=== PATIENT | female | born 1960 | race Caucasian/White ===

== ENCOUNTER 2017-04-02 14:41 | Emergency (ER) | payer MEDICARE, SELFPAY ==
[2017-04-02] MEDS ORDERED: Sodium Chloride 0.9% 1,000 ML IV ONE (14:53)
[2017-04-02] MEDS ORDERED: Ketorolac 30 MG/ML SDV IVPUSH ONE (14:54)
--- NOTE | 2017-04-02 15:07 | EDM.PDOC ---
ED HPI GENERAL MEDICAL PROBLEM - General Chief Complaint: Genitourinary Problem Stated Complaint: KIDNEY STONE? [id number] Time Seen by Provider: 04/02/17 15:02 Source of Information: Reports: Patient History Limitations: Reports: No Limitations - History of Present Illness INITIAL COMMENTS - FREE TEXT/NARRATIVE: 57 yo white female c/o left flank pain since 1pm today. PMHx. Left Kidney stones X 1 year. No Fever and No Chills Onset: Today Onset Date: 04/02/17 Onset Time: 13:00 Duration: Hour(s): Location: Reports: Back (left flank) Quality: Reports: Ache Severity: Moderate Improves with: Reports: None Worsens with: Reports: None Associated Symptoms: Reports: No Other Symptoms - Related Data Allergies Allergy/AdvReac Type Severity Reaction Status Date / Time No Known Allergies Allergy Verified 08/13/16 12:31 Home Meds: Home Meds Divalproex Sodium [Divalproex Sodium ER] 1,500 mg PO BEDTIME 07/14/14 [History] metFORMIN HCl [Metformin HCl ER] 2,000 mg PO DAILY 07/14/14 [History] Aspirin 81 mg PO BRK 11/20/15 [History] Famotidine [Pepcid] 20 mg PO DAILY PRN 11/20/15 [History] Ibuprofen [Motrin] 800 mg PO Q6H 11/20/15 [History] atorvaSTATin [Lipitor] 10 mg PO BEDTIME 11/20/15 [History] Past Medical History HEENT History: Reports: Impaired Vision Cardiovascular History: Reports: High Cholesterol, Hypertension Gastrointestinal History: Reports: Cholelithiasis, GERD Musculoskeletal History: Reports: Other (See Below) Other Musculoskeletal History: elbow surgery Neurological History: Reports: Neuropathy, Diabetic Endocrine/Metabolic History: Reports: Diabetes, Type II, Obesity/BMI 30+ - Past Surgical History Female Surgical History: Reports: Hysterectomy Social & Family History - Family History Family Medical History: Noncontributory - Tobacco Use Smoking Status *Q: Never Smoker Second Hand Smoke Exposure: No - Caffeine Use Caffeine Use: Reports: Soda - Alcohol Use Days Per Week of Alcohol Use: 0 - Recreational Drug Use Recreational Drug Use: No - Living Situation & Occupation Living situation: Reports: with Family ED ROS GENERAL - Review of Systems Review Of Systems: See Below Constitutional: Reports: No Symptoms HEENT: Reports: No Symptoms Respiratory: Reports: No Symptoms Cardiovascular: Reports: No Symptoms Endocrine: Reports: No Symptoms : Reports: Flank Pain (left) Musculoskeletal: Reports: No Symptoms Skin: Reports: No Symptoms Neurological: Reports: No Symptoms Psychiatric: Reports: No Symptoms Hematologic/Lymphatic: Reports: No Symptoms Immunologic: Reports: No Symptoms ED EXAM, RENAL/ - Physical Exam Exam: See Below Exam Limited By: No Limitations General Appearance: Alert, No Apparent Distress, Obese Ears: Normal External Exam Nose: Normal Inspection Throat/Mouth: Normal Inspection Head: Atraumatic Neck: Normal Inspection Respiratory/Chest: Lungs Clear, No Accessory Muscle Use Cardiovascular: Normal Peripheral Pulses, Regular Rate, Rhythm GI/Abdominal: Normal Bowel Sounds Back Exam: Normal Inspection Extremities: Normal Inspection Neurological: Alert, Oriented, CN II-XII Intact Psychiatric: Normal Affect, Normal Mood Skin Exam: Warm, Dry, Intact Lymphatic: No Adenopathy Course - Vital Signs Last Recorded V/S: Last Vital Signs Temp 36.4 C 04/02/17 17:14 Pulse 61 04/02/17 17:14 Resp 20 04/02/17 17:14 BP 124/66 04/02/17 17:14 Pulse Ox 95 04/02/17 17:14 - Orders/Labs/Meds Orders: Active Orders 24 hr Category Date Time Status Sodium Chloride 0.9% [Normal Saline] 1,000 ml Med 04/02/17 18:00 Active IV ASDIRECTED Medication Orders Sodium Chloride (Normal Saline) 1,000 mls @ 999 mls/hr IV ASDIRECTED OLGA Last Admin: 04/02/17 17:54 Dose: 999 mls/hr Labs: Laboratory Tests 04/02/17 04/02/17 04/02/17 Range/Units 15:11 15:11 16:20 WBC 6.3 (5.0-10.0) 10^3/uL RBC 4.13 L (4.2-5.4) 10^6/uL Hgb 13.6 (12.0-16.0) g/dL Hct 41.8 (37.0-47.0) % MCV 101.2 H (80-100) fL MCH 32.9 (27.0-34.0) pg MCHC 32.5 L (33.0-35.0) g/dL Plt Count 162 (150-450) 10^3/uL Neut % (Auto) 47.6 (42.2-75.2) % Lymph % (Auto) 38.0 (20.5-50.1) % [place] % (Auto) 10.7 H (2-8) % Eos % (Auto) 3.2 H (1.0-3.0) % Baso % (Auto) 0.5 (0.0-1.0) % Sodium 141 (135-145) mmol/L Potassium 4.3 (3.6-5.0) mmol/L Chloride 103 (101-111) mmol/L Carbon Dioxide 25.0 (21.0-31.0) mmol/L Anion Gap 17.3 BUN 13 (7-18) mg/dL Creatinine 0.8 (0.6-1.3) mg/dL Est Cr Clr Drug Dosing TNP Estimated GFR (MDRD) > 60 BUN/Creatinine Ratio 16.25 Glucose 157 H (74-105) mg/dL Calcium 9.8 (8.4-10.2) mg/dl Total Bilirubin 0.4 (0.2-1.0) mg/dL AST 56 H (10-42) IU/L ALT 34 (10-60) IU/L Alkaline Phosphatase 77 (42-121) IU/L Total Protein 7.4 (6.7-8.2) g/dl Albumin 3.8 (3.2-5.5) g/dl Globulin 3.6 Albumin/Globulin Ratio 1.06 Urine Color [place] (YELLOW) Urine Appearance Turbid (CLEAR) Urine pH 5.5 (5.0-9.0) Ur Specific [place] 1.025 (1.005-1.030) Urine Protein >=300 H (NEGATIVE) Urine Glucose (UA) Negative (NEGATIVE) Urine Ketones 15 H (NEGATIVE) Urine Occult Blood Large H (NEGATIVE) Urine Nitrite Negative (NEGATIVE) Urine Bilirubin Small H (NEGATIVE) Urine Urobilinogen 0.2 (0.2-1.0) mg/dL Ur Leukocyte Esterase Negative (NEGATIVE) Urine RBC >100 H /HPF Urine WBC 0-5 (0-5/HPF) /HPF Ur Epithelial Cells Moderate H /HPF Calcium Oxalate Crystal Few H /HPF Amorphous Sediment Many H (0/HPF) /HPF Urine Bacteria Few (0-FEW/HPF) /HPF Fine Granular Casts Few H (0/LPF) /LPF Urine Mucus Few H /LPF Meds: Medications Generic Name Dose Route Start Last Admin Trade Name Anjali PRN Reason Stop Dose Admin Sodium Chloride 1,000 mls @ 999 mls/hr 04/02/17 18:00 04/02/17 17:54 Normal Saline IV 999 mls/hr ASDIRECTED OLGA Administration Discontinued Medications Generic Name Dose Route Start Last Admin Trade Name Anjali PRN Reason Stop Dose Admin Sodium Chloride 1,000 mls @ 999 mls/hr 04/02/17 14:53 04/02/17 15:15 Normal Saline IV 04/02/17 15:53 999 mls/hr .BOLUS ONE Administration Ketorolac Tromethamine 30 mg 04/02/17 14:54 04/02/17 15:25 Toradol IVPUSH 04/02/17 14:55 30 mg ONETIME ONE Administration Tamsulosin HCl 0.4 mg 04/02/17 17:27 04/02/17 17:50 Flomax PO 04/02/17 17:28 0.4 mg ONETIME ONE Administration Departure - Departure Time of Disposition: 18:09 Disposition: Home, Self-Care 01 Condition: Good Clinical Impression: Kidney stone - Discharge Information Forms: ED Department Discharge Additional Instructions: Rest Increase intake of WATER and CRANBERRY JUICE Take the FLOMAX .4mg Daily X 5 days F/U w/ PCP - My Orders Last 24 Hours: My Active Orders 04/02/17 18:00 Sodium Chloride 0.9% [Normal Saline] 1,000 ml IV ASDIRECTED - Assessment/Plan Last 24 Hours: My Active Orders 04/02/17 18:00 Sodium Chloride 0.9% [Normal Saline] 1,000 ml IV ASDIRECTED
[2017-04-02 15:38] LABS: CHLORIDE,CL 103 mmol/L (101-111); SODIUM,NA 141 mmol/L (135-145)
[2017-04-02] MEDS ORDERED: Tamsulosin 0.4 MG Cap.ER PO ONE (17:27)
[2017-04-02] MEDS ORDERED: Sodium Chloride 0.9% 1,000 ML IV SCH (18:00)
[2017-04-02 18:57] VITALS: BP 128/66
== END 2017-04-02 19:03 | disposition home or self-care (01) ==
LOC: DL.ED 14:41
DX: N13.2 Hydronephrosis with renal and ureteral calculous obstruction (principal); I10 Essential (primary) hypertension; E78.00 Pure hypercholesterolemia, unspecified; K21.9 Gastro-esophageal reflux disease without esophagitis; E66.9 Obesity, unspecified; E11.40 Type 2 diabetes mellitus with diabetic neuropathy, unspecified; Z90.710 Acquired absence of both cervix and uterus; Z79.84 Long term (current) use of oral hypoglycemic drugs; Z79.82 Long term (current) use of aspirin; Z79.899 Other long term (current) drug therapy; Z68.41 Body mass index [BMI] 40.0-44.9, adult
CPT/HCPCS: 36415; 74176; 80053; 81001; 85025; 96361; 96374; 99284; A9270; J1885; J7030

== ENCOUNTER 2017-06-08 22:37 | Emergency (ER) | payer MEDICARE, OTHER, SELFPAY ==
[2017-06-08 22:45] VITALS: BP 181/84
[2017-06-08] MEDS ORDERED: Albuterol/Ipratropium 3.0-0.5 MG/3 ML Neb Soln NEB ONE (22:51)
--- NOTE | 2017-06-08 22:53 | EDM.PDOC ---
ED HPI GENERAL MEDICAL PROBLEM - General Chief Complaint: Respiratory Problem Stated Complaint: 2 WEEKS COLD, SORE THROAT [id number] Time Seen by Provider: 06/08/17 22:51 Source of Information: Reports: Patient History Limitations: Reports: No Limitations - History of Present Illness INITIAL COMMENTS - FREE TEXT/NARRATIVE: sick 2 weeks saw clinic told viral but not better. now with sore throat. 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 Medication(s) Throat Pain Score (Numeric/FACES): 8 - Related Data Allergies Allergy/AdvReac Type Severity Reaction Status Date / Time No Known Allergies Allergy Verified 06/08/17 22:41 Home Meds: Home Meds Divalproex Sodium [Divalproex Sodium ER] 1,500 mg PO BEDTIME 07/14/14 [History] metFORMIN HCl [Metformin HCl ER] 2,000 mg PO DAILY 07/14/14 [History] Aspirin 81 mg PO BRK 11/20/15 [History] Famotidine [Pepcid] 20 mg PO DAILY PRN 11/20/15 [History] Ibuprofen [Motrin] 800 mg PO Q6H 11/20/15 [History] atorvaSTATin [Lipitor] 10 mg PO BEDTIME 11/20/15 [History] Past Medical History HEENT History: Reports: Impaired Vision Other HEENT History: wears glasses Cardiovascular History: Reports: High Cholesterol, Hypertension Respiratory History: Reports: None Gastrointestinal History: Reports: Cholelithiasis, GERD Genitourinary History: Reports: Renal Calculus Musculoskeletal History: Reports: Other (See Below) Other Musculoskeletal History: elbow surgery Neurological History: Reports: Neuropathy, Diabetic Other Neuro History: benign brain tumor Endocrine/Metabolic History: Reports: Diabetes, Type II, Obesity/BMI 30+ - Past Surgical History Female Surgical History: Reports: Hysterectomy Social & Family History - Family History Family Medical History: Noncontributory - Tobacco Use Smoking Status *Q: Never Smoker Second Hand Smoke Exposure: No - Caffeine Use Caffeine Use: Reports: Soda - Alcohol Use Days Per Week of Alcohol Use: 0 - Recreational Drug Use Recreational Drug Use: No - Living Situation & Occupation Living situation: Reports: with Family ED ROS GENERAL - Review of Systems Review Of Systems: ROS reveals no pertinent complaints other than HPI. ED EXAM, GENERAL - Physical Exam Exam: See Below Exam Limited By: No Limitations General Appearance: Alert, WD/WN, No Apparent Distress Ears: Hearing Grossly Normal Throat/Mouth: Normal Voice, No Airway Compromise Head: Atraumatic Neck: Non-Tender, Full Range of Motion Respiratory/Chest: No Respiratory Distress, No Accessory Muscle Use, Rhonchi, Wheezing. No: Decreased Breath Sounds, Retractions Cardiovascular: Regular Rate, Rhythm GI/Abdominal: Soft, Non-Tender Neurological: Alert, Oriented, Normal Cognition, Normal Gait, No Motor/Sensory Deficits Psychiatric: Normal Affect, Normal Mood Skin Exam: Warm, Dry, Normal Color Lymphatic: No Adenopathy Course - Vital Signs Last Recorded V/S: Last Vital Signs Temp 36.8 C 06/08/17 22:44 Pulse 94 06/08/17 22:44 Resp 22 H 06/08/17 22:44 BP 181/84 H 06/08/17 22:44 Pulse Ox 91 L 06/08/17 22:44 - Orders/Labs/Meds Orders: Active Orders 24 hr Category Date Time Status RT Aerosol Therapy [RC] ASDIRECTED Care 06/08/17 22:51 Active CULTURE STREP A CONFIRMATION [] Stat Lab 06/08/17 22:50 Results STREP SCRN A RAPID W CULT CONF [] Stat Lab 06/08/17 22:50 Results Meds: Medications Discontinued Medications Generic Name Dose Route Start Last Admin Trade Name Freq PRN Reason Stop Dose Admin Albuterol/Ipratropium 3 ml 06/08/17 22:51 06/08/17 22:54 Duoneb 3.0-0.5 Mg/3 Ml NEB 06/08/17 22:52 3 ml ONETIME ONE Administration Penicillin G Procaine/Benzathine 1.2 millunits 06/08/17 23:29 Bicillin C-R 600/600 IM 06/08/17 23:30 ONETIME ONE - Re-Assessments/Exams Free Text/Narrative Re-Assessment/Exam: 06/08/17 23:30 results discussed with pt who is breathing better s/p duoneb but throat still hurts. Departure - Departure Time of Disposition: 23:31 Disposition: Home, Self-Care 01 Condition: Good Clinical Impression: Bronchospasm with bronchitis, acute, Tonsillitis - Discharge Information Instructions: Acute Bronchitis, [id number] Forms: ED Department Discharge Additional Instructions: 1) avoid solid foods and scratchy foods 2) take neb treatment 3 times daily for cough 3) don't sleep flat at night 4) follow up at clinic rx given; albuterol 2.5mg solution tid prn x 1 box - My Orders Last 24 Hours: My Active Orders 06/08/17 22:50 CULTURE STREP A CONFIRMATION [RM] Stat STREP SCRN A RAPID W CULT CONF [RM] Stat 06/08/17 22:51 RT Aerosol Therapy [RC] ASDIRECTED - Assessment/Plan Last 24 Hours: My Active Orders 06/08/17 22:50 CULTURE STREP A CONFIRMATION [RM] Stat STREP SCRN A RAPID W CULT CONF [RM] Stat 06/08/17 22:51 RT Aerosol Therapy [RC] ASDIRECTED
[2017-06-08] MEDS ORDERED: Penicillin G Benzathine/Procaine 600-600 1.2 Millunits/2 ML Syringe IM ONE (23:29)
== END 2017-06-08 23:47 | disposition home or self-care (01) ==
LOC: DL.ED 22:37
DX: J20.9 Acute bronchitis, unspecified (principal); J03.90 Acute tonsillitis, unspecified; I10 Essential (primary) hypertension; E78.00 Pure hypercholesterolemia, unspecified; E11.40 Type 2 diabetes mellitus with diabetic neuropathy, unspecified; K21.9 Gastro-esophageal reflux disease without esophagitis; Z79.84 Long term (current) use of oral hypoglycemic drugs; Z79.82 Long term (current) use of aspirin; Z79.899 Other long term (current) drug therapy
CPT/HCPCS: 87081; 87430; 94640; 96372; 99283; J0558

== ENCOUNTER 2017-06-09 21:06 | Emergency (ER) | payer MEDICARE, OTHER, SELFPAY ==
[2017-06-09 21:28] VITALS: BP 98/83
[2017-06-09] MEDS ORDERED: Ketorolac 30 MG/ML SDV IVPUSH ONE (21:28)
--- NOTE | 2017-06-09 21:33 | EDM.PDOC ---
ED HPI GENERAL MEDICAL PROBLEM - General Chief Complaint: ENT Problem Stated Complaint: BAD SORE THROAT [id number] Time Seen by Provider: 06/09/17 21:28 Source of Information: Reports: Patient History Limitations: Reports: No Limitations - History of Present Illness INITIAL COMMENTS - FREE TEXT/NARRATIVE: was here yesterday got IM penicllin, throat still hurts only minimally better and now lost voice. but breathing much better than yesterday Throat Pain Score (Numeric/FACES): 7 - Related Data Allergies Allergy/AdvReac Type Severity Reaction Status Date / Time No Known Allergies Allergy Verified 06/09/17 21:23 Home Meds: Home Meds Divalproex Sodium [Divalproex Sodium ER] 1,500 mg PO BEDTIME 07/14/14 [History] metFORMIN HCl [Metformin HCl ER] 2,000 mg PO BID 07/14/14 [History] Aspirin 81 mg PO BEDTIME 11/20/15 [History] Famotidine [Pepcid] 20 mg PO DAILY PRN 11/20/15 [History] Ibuprofen [Motrin] 800 mg PO Q6H PRN 11/20/15 [History] atorvaSTATin [Lipitor] 10 mg PO BEDTIME 11/20/15 [History] Past Medical History HEENT History: Reports: Impaired Vision Other HEENT History: wears glasses Cardiovascular History: Reports: High Cholesterol, Hypertension Respiratory History: Reports: None Gastrointestinal History: Reports: Cholelithiasis, GERD Genitourinary History: Reports: Renal Calculus Musculoskeletal History: Reports: Other (See Below) Other Musculoskeletal History: elbow surgery Neurological History: Reports: Neuropathy, Diabetic Other Neuro History: benign brain tumor Endocrine/Metabolic History: Reports: Diabetes, Type II, Obesity/BMI 30+ - Past Surgical History Female Surgical History: Reports: Hysterectomy Social & Family History - Family History Family Medical History: Noncontributory - Tobacco Use Smoking Status *Q: Never Smoker Second Hand Smoke Exposure: No - Caffeine Use Caffeine Use: Reports: Soda - Alcohol Use Days Per Week of Alcohol Use: 0 - Recreational Drug Use Recreational Drug Use: No - Living Situation & Occupation Living situation: Reports: with Family ED ROS ENT - Review of Systems Review Of Systems: ROS reveals no pertinent complaints other than HPI. ED EXAM, ENT - Physical Exam Exam: See Below Exam Limited By: No Limitations General Appearance: Alert, WD/WN, No Apparent Distress, Other (upset) Ears: Hearing Grossly Normal Mouth/Throat: Hoarse Voice, Pharyngeal Erythema, Throat Pain, Tonsillar Erythema. No: Drooling, Dry Mucous Membrane, Throat Swelling, Tonsillar Exudates, Trismus, Uvular Edema Head: Atraumatic Neck: Non-Tender, Full Range of Motion Respiratory/Chest: No Respiratory Distress, Lungs Clear, Normal Breath Sounds Cardiovascular: Regular Rate, Rhythm GI/Abdominal: Soft, Non-Tender Neurological: Alert, Oriented, Normal Cognition, Normal Gait, No Motor/Sensory Deficits Psychiatric: Anxious Skin: Warm, Dry, Normal Color Lymphatic: No Adenopathy Course - Vital Signs Last Recorded V/S: Last Vital Signs Temp 37.0 C 06/09/17 21:23 Pulse 102 H 06/09/17 21:23 Resp 18 06/09/17 21:23 BP 98/83 06/09/17 21:23 Pulse Ox 94 L 06/09/17 21:23 - Orders/Labs/Meds Meds: Medications Discontinued Medications Generic Name Dose Route Start Last Admin Trade Name Anjali PRN Reason Stop Dose Admin Ketorolac Tromethamine 30 mg 06/09/17 21:28 06/09/17 21:37 Toradol IVPUSH 06/09/17 21:29 30 mg ONETIME ONE Administration Departure - Departure Time of Disposition: 21:50 Disposition: Home, Self-Care 01 Condition: Good Clinical Impression: Laryngitis, Tonsillitis - Discharge Information Instructions: Laryngitis Forms: ED Department Discharge Additional Instructions: 1) try salt water gargle 2) avoid solid foods and scratchy foods 3) follow up at clinic or recheck as needed
== END 2017-06-09 21:53 | disposition home or self-care (01) ==
LOC: DL.ED 21:06
DX: J04.0 Acute laryngitis (principal); J03.90 Acute tonsillitis, unspecified; I10 Essential (primary) hypertension; E78.00 Pure hypercholesterolemia, unspecified; E11.40 Type 2 diabetes mellitus with diabetic neuropathy, unspecified; E66.9 Obesity, unspecified; Z79.4 Long term (current) use of insulin; Z79.84 Long term (current) use of oral hypoglycemic drugs; Z79.899 Other long term (current) drug therapy
CPT/HCPCS: 96374; 99283; J1885

== ENCOUNTER 2018-03-14 20:01 | Inpatient (IN) | payer MEDICARE, OTHER, SELFPAY ==
[2018-03-14] MEDS ORDERED: Albuterol/Ipratropium 3.0-0.5 MG/3 ML Neb Soln NEB ONE (20:37)
--- NOTE | 2018-03-14 20:46 | EDM.PDOC ---
ED HPI GENERAL MEDICAL PROBLEM - General Chief Complaint: Respiratory Problem Stated Complaint: PNEUMONIA [id number] Time Seen by Provider: 03/14/18 20:43 Source of Information: Reports: Patient History Limitations: Reports: No Limitations - History of Present Illness INITIAL COMMENTS - FREE TEXT/NARRATIVE: sick since Monday with cough & sob saw PMD yesterday given levaquin but not better and worse today. non smoker, denies asthma. Chest Pain Score (Numeric/FACES): 10 - Related Data Allergies Allergy/AdvReac Type Severity Reaction Status Date / Time No Known Allergies Allergy Verified 03/14/18 20:07 Home Meds: Home Meds Divalproex Sodium [Divalproex Sodium ER] 1,500 mg PO BEDTIME 07/14/14 [History] metFORMIN HCl [Metformin HCl ER] 2,000 mg PO BID 07/14/14 [History] Aspirin 81 mg PO BEDTIME 11/20/15 [History] Famotidine [Pepcid] 20 mg PO DAILY PRN 11/20/15 [History] Ibuprofen [Motrin] 800 mg PO Q6H PRN 11/20/15 [History] atorvaSTATin [Lipitor] 10 mg PO BEDTIME 11/20/15 [History] Levofloxacin 750 mg PO DAILY 03/14/18 [History] Past Medical History HEENT History: Reports: Impaired Vision Other HEENT History: wears glasses Cardiovascular History: Reports: High Cholesterol, Hypertension Respiratory History: Reports: None Gastrointestinal History: Reports: Cholelithiasis, GERD Genitourinary History: Reports: Renal Calculus [employer] P[employer]ER History: Reports: None Musculoskeletal History: Reports: Other (See Below) Other Musculoskeletal History: elbow surgery Neurological History: Reports: Neuropathy, Diabetic Other Neuro History: benign brain tumor Psychiatric History: Reports: None Endocrine/Metabolic History: Reports: Diabetes, Type II, Obesity/BMI 30+ Hematologic History: Reports: None Immunologic History: Reports: None Oncologic (Cancer) History: Reports: None Dermatologic History: Reports: None - Past Surgical History GI Surgical History: Reports: Cholecystectomy Female Surgical History: Reports: Hysterectomy Social & Family History - Family History Family Medical History: Noncontributory - Tobacco Use Smoking Status *Q: Never Smoker - Caffeine Use Caffeine Use: Reports: Soda - Recreational Drug Use Recreational Drug Use: No - Living Situation & Occupation Living situation: Reports: with Family ED ROS GENERAL - Review of Systems Review Of Systems: ROS reveals no pertinent complaints other than HPI. ED EXAM, GENERAL - Physical Exam Exam: See Below Exam Limited By: No Limitations General Appearance: Alert, WD/WN, Mild Distress, Other (wheeze) Ears: Hearing Grossly Normal Throat/Mouth: Normal Voice, No Airway Compromise Head: Atraumatic Neck: Non-Tender, Full Range of Motion Respiratory/Chest: Decreased Breath Sounds, Rhonchi, Wheezing, Other (right>) Cardiovascular: Regular Rate, Rhythm GI/Abdominal: Soft, Non-Tender Neurological: Alert, Oriented, Normal Cognition, Normal Gait, No Motor/Sensory Deficits Psychiatric: Flat Affect Skin Exam: Warm, Dry, Normal Color Lymphatic: No Adenopathy Course - Vital Signs Last Recorded V/S: Last Vital Signs Temp 36.8 C 03/14/18 20:11 Pulse 100 03/14/18 20:42 Resp 20 03/14/18 20:42 BP 160/70 H 03/14/18 20:11 Pulse Ox 93 L 03/14/18 20:42 - Orders/Labs/Meds Orders: Active Orders 24 hr Category Date Time Status RT Aerosol Therapy [RC] ASDIRECTED Care 03/14/18 20:37 Active Chest 2V [CR] Urgent Exams 03/14/18 20:37 Taken CULTURE BLOOD [BC] Stat Lab 03/14/18 20:22 Received Labs: Laboratory Tests 03/14/18 03/14/18 03/14/18 Range/Units 20:22 20:22 20:22 WBC 4.6 L (5.0-10.0) 10^3/uL RBC 4.06 L (4.2-5.4) 10^6/uL Hgb 13.3 (12.0-16.0) g/dL Hct 39.8 (37.0-47.0) % MCV 98.0 D (80-100) fL MCH 32.8 (27.0-34.0) pg MCHC 33.4 (33.0-35.0) g/dL Plt Count 157 (150-450) 10^3/uL Neut % (Auto) 55.2 (42.2-75.2) % Lymph % (Auto) 29.9 (20.5-50.1) % [place] % (Auto) 12.5 H (2-8) % Eos % (Auto) 2.4 (1.0-3.0) % Baso % (Auto) 0.0 (0.0-1.0) % Sodium 139 (135-145) mmol/L Potassium 3.2 L (3.6-5.0) mmol/L Chloride 103 (101-111) mmol/L Carbon Dioxide 27.0 (21.0-31.0) mmol/L Anion Gap 12.2 BUN 11 (7-18) mg/dL Creatinine 0.8 (0.6-1.3) mg/dL Est Cr Clr Drug Dosing 61.86 mL/min Estimated GFR (MDRD) > 60 BUN/Creatinine Ratio 13.75 Glucose 191 H (74-105) mg/dL Lactic Acid 1.6 (0.5-2.2) mmol/L Calcium 9.1 (8.4-10.2) mg/dl Total Bilirubin 0.5 (0.2-1.0) mg/dL AST 32 (10-42) IU/L ALT 18 (10-60) IU/L Alkaline Phosphatase 61 (42-121) IU/L Total Protein 7.5 (6.7-8.2) g/dl Albumin 3.4 (3.2-5.5) g/dl Globulin 4.1 Albumin/Globulin Ratio 0.83 Meds: Medications Discontinued Medications Generic Name Dose Route Start Last Admin Trade Name Freq PRN Reason Stop Dose Admin Albuterol/Ipratropium 3 ml 03/14/18 20:37 03/14/18 20:41 Duoneb 3.0-0.5 Mg/3 Ml NEB 03/14/18 20:38 3 ml ONETIME ONE Administration - Re-Assessments/Exams Free Text/Narrative Re-Assessment/Exam: 03/14/18 21:[address] Wong who kindly admitted pt. Departure - Departure Time of Disposition: 21:46 Disposition: Admitted As Inpatient 66 Condition: Fair Clinical Impression: Pneumonia Qualifiers: Pneumonia type: due to unspecified organism Laterality: right Lung location: lower lobe of lung Qualified Code(s): J18.1 - Lobar pneumonia, unspecified organism - Discharge Information Forms: ED Department Discharge - My Orders Last 24 Hours: My Active Orders 03/14/18 20:22 CULTURE BLOOD [BC] Stat 03/14/18 20:37 RT Aerosol Therapy [RC] ASDIRECTED Chest 2V [CR] Urgent - Assessment/Plan Last 24 Hours: My Active Orders 03/14/18 20:22 CULTURE BLOOD [BC] Stat 03/14/18 20:37 RT Aerosol Therapy [RC] ASDIRECTED Chest 2V [CR] Urgent
[2018-03-14 20:52] LABS: ANION GAP 12.2; CHLORIDE,CL 103 mmol/L (101-111); SODIUM,NA 139 mmol/L (135-145)
[2018-03-14] MEDS ORDERED: Albuterol/Ipratropium 3.0-0.5 MG/3 ML Neb Soln NEB PRN (22:48)
[2018-03-14] MEDS ORDERED: Famotidine 20 MG Tab PO PRN (22:49)
[2018-03-14] MEDS ORDERED: Ondansetron 4 MG Tab.DIS PO PRN (22:57)
[2018-03-14] MEDS ORDERED: Acetaminophen 325 MG Tab PO PRN (22:57)
--- NOTE | 2018-03-14 22:57 | PCM.HP ---
H&P History of Present Illness - General Date of Service: 03/14/18 Source of Information: Patient - History of Present Illness Initial Comments - Free Text/Narative: The patient is a 58-year-old lady with a history of diabetes. The patient presented with the cough. Symptoms started on Monday. They have been worsening. The patient was seen by her primary care physician and on 13 March was started on levofloxacin. The patient came into the emergency room with no improvement in symptoms. She has episodes of coughing spells. Denies chest pain when coughing but not otherwise. The pain is described as a burning. No sick contact, no stuffy nose, no sore throat. Chest Pain Score (Numeric/FACES): 0 - Related Data Allergies/Adverse Reactions: Allergies Allergy/AdvReac Type Severity Reaction Status Date / Time No Known Allergies Allergy Verified 03/14/18 22:10 Home Medications: Home Meds Divalproex Sodium [Divalproex Sodium ER] 1,500 mg PO BEDTIME 07/14/14 [History] metFORMIN HCl [Metformin HCl ER] 1,000 mg PO BID 07/14/14 [History] Aspirin 81 mg PO BEDTIME 11/20/15 [History] Famotidine [Pepcid] 20 mg PO DAILY PRN 11/20/15 [History] Ibuprofen [Motrin] 800 mg PO Q6H PRN 11/20/15 [History] atorvaSTATin [Lipitor] 10 mg PO BEDTIME 11/20/15 [History] Levofloxacin 750 mg PO DAILY 03/14/18 [History] Past Medical History HEENT History: Reports: Impaired Vision Other HEENT History: wears glasses Cardiovascular History: Reports: High Cholesterol, Hypertension Respiratory History: Reports: None Gastrointestinal History: Reports: Cholelithiasis, GERD Genitourinary History: Reports: Renal Calculus SPECIALTY DEVELOPMENT CONSULTANT History: Reports: None Musculoskeletal History: Reports: Other (See Below) Other Musculoskeletal History: elbow surgery Neurological History: Reports: Neuropathy, Diabetic Other Neuro History: benign brain tumor Psychiatric History: Reports: None Endocrine/Metabolic History: Reports: Diabetes, Type II, Obesity/BMI 30+ Hematologic History: Reports: None Immunologic History: Reports: None Oncologic (Cancer) History: Reports: None Dermatologic History: Reports: None - Infectious Disease History Infectious Disease History: Reports: Chicken Pox, Measles - Past Surgical History GI Surgical History: Reports: Cholecystectomy Female Surgical History: Reports: Hysterectomy Social & Family History - Family History Family Medical History: Noncontributory - Tobacco Use Smoking Status *Q: Never Smoker Second Hand Smoke Exposure: No - Caffeine Use Caffeine Use: Reports: None - Recreational Drug Use Recreational Drug Use: No - Living Situation & Occupation Living situation: Reports: with Family H&P Review of Systems - Review of Systems: Review Of Systems: See Below General: Denies: Fever Pulmonary: Reports: Shortness of Breath, Cough. Denies: Wheezing, Sputum Cardiovascular: Reports: Chest Pain (With coughing) Gastrointestinal: Denies: Abdominal Pain Genitourinary: Denies: Dysuria Musculoskeletal: Denies: Leg Pain Exam - Exam Exam: See Below - Vital Signs Vital Signs: Last Vital Signs Temp 36.4 C 03/14/18 22:08 Pulse 91 03/14/18 22:08 Resp 20 03/14/18 22:08 BP 139/65 03/14/18 22:08 Pulse Ox 91 L 03/14/18 22:08 Weight: 99.427 kg - Exam Quality Assessment: Supplemental Oxygen General: Alert, Oriented Neck: Supple Lungs: Clear to Auscultation, Normal Respiratory Effort Cardiovascular: Regular Rate, Regular Rhythm GI/Abdominal Exam: Normal Bowel Sounds, Soft, Non-Tender Extremities: No Pedal Edema - Patient Data Lab Results Last 24 hrs: Laboratory Results - last 24 hr 03/14/18 03/14/18 03/14/18 Range/Units 20:22 20:22 20:22 WBC 4.6 L (5.0-10.0) 10^3/uL RBC 4.06 L (4.2-5.4) 10^6/uL Hgb 13.3 (12.0-16.0) g/dL Hct 39.8 (37.0-47.0) % MCV 98.0 D (80-100) fL MCH 32.8 (27.0-34.0) pg MCHC 33.4 (33.0-35.0) g/dL Plt Count 157 (150-450) 10^3/uL Neut % (Auto) 55.2 (42.2-75.2) % Lymph % (Auto) 29.9 (20.5-50.1) % Ness % (Auto) 12.5 H (2-8) % Eos % (Auto) 2.4 (1.0-3.0) % Baso % (Auto) 0.0 (0.0-1.0) % Sodium 139 (135-145) mmol/L Potassium 3.2 L (3.6-5.0) mmol/L Chloride 103 (101-111) mmol/L Carbon Dioxide 27.0 (21.0-31.0) mmol/L Anion Gap 12.2 BUN 11 (7-18) mg/dL Creatinine 0.8 (0.6-1.3) mg/dL Est Cr Clr Drug Dosing 61.86 mL/min Estimated GFR (MDRD) > 60 BUN/Creatinine Ratio 13.75 Glucose 191 H (74-105) mg/dL Lactic Acid 1.6 (0.5-2.2) mmol/L Calcium 9.1 (8.4-10.2) mg/dl Total Bilirubin 0.5 (0.2-1.0) mg/dL AST 32 (10-42) IU/L ALT 18 (10-60) IU/L Alkaline Phosphatase 61 (42-121) IU/L Total Protein 7.5 (6.7-8.2) g/dl Albumin 3.4 (3.2-5.5) g/dl Globulin 4.1 Albumin/Globulin Ratio 0.83 Result Diagrams: 03/14/18 20:22 03/14/18 20:22 Imaging Impressions Last 24 hrs: Chest x-ray per my reading shows large right-sided infiltrate - Problem List (1) Pneumonia SNOMED Code(s): 137338292 ICD Code: J18.9 - PNEUMONIA, UNSPECIFIED ORGANISM Status: Acute Current Visit: No Qualifiers: Pneumonia type: due to unspecified organism Laterality: right Lung location: lower lobe of lung Qualified Code(s): J18.1 - Lobar pneumonia, unspecified organism Problem List Initiated/Reviewed/Updated: Yes Orders Last 24hrs: Active Orders 24 hr Category Date Time Status Glucose [Blood Glucose Check, Bedside] [RC] QIDACANDBED Care 03/14/18 22:50 Ordered RT Aerosol Therapy [RC] ASDIRECTED Care 03/14/18 20:37 Active RT Aerosol Therapy [RC] ASDIRECTED Care 03/14/18 22:48 Ordered Chest 2V [CR] Urgent Exams 03/14/18 20:37 Taken BASIC METABOLIC PANEL,BMP [CHEM] AM Lab 03/15/18 05:15 Ordered CBC WITH AUTO DIFF [HEME] AM Lab 03/15/18 05:15 Ordered CULTURE BLOOD [BC] Stat Lab 03/14/18 20:22 Received CULTURE SPUTUM + SMEAR [RM] Routine Lab 03/14/18 22:47 Ordered Albuterol/Ipratropium [DuoNeb 3.0-0.5 MG/3 ML] Med 03/15/18 07:00 Ordered 3 ml NEB BIDRT Albuterol/Ipratropium [DuoNeb 3.0-0.5 MG/3 ML] Med 03/14/18 22:48 Ordered 3 ml NEB Q4HRRT PRN Aspirin Med 03/15/18 21:00 Ordered 81 mg PO BEDTIME Azithromycin [Zithromax] 500 mg Med 03/14/18 23:00 Ordered Sodium Chloride 0.9% [Normal Saline] 250 ml IV Q24H Dextromethorphan/guaiFENesin [Robitussin DM] Med 03/14/18 22:47 Ordered 10 ml PO Q6H PRN Divalproex Sodium [Divalproex Sodium ER] Med 03/15/18 21:00 Ordered 1,500 mg PO BEDTIME Famotidine [Pepcid] Med 03/14/18 22:49 Ordered 20 mg PO DAILY PRN Ibuprofen [Motrin] Med 03/14/18 22:49 Ordered 800 mg PO Q6H PRN Insulin Aspart [NovoLOG] Med 03/14/18 23:00 Ordered See Protocol SUBCUT .QID AC + HS atorvaSTATin [Lipitor] Med 03/15/18 21:00 Ordered 10 mg PO BEDTIME cefTRIAXone [Rocephin] Med 03/14/18 23:00 Ordered 1 gm IVPUSH Q24H Medication Orders Albuterol/Ipratropium (Duoneb 3.0-0.5 Mg/3 Ml) 3 ml NEB Q4HRRT PRN PRN Reason: sob Albuterol/Ipratropium (Duoneb 3.0-0.5 Mg/3 Ml) 3 ml NEB BIDRT [facility] Aspirin (Aspirin) 81 mg PO BEDTIME [facility] Atorvastatin Calcium (Lipitor) 10 mg PO BEDTIME [facility] Ceftriaxone Sodium (Rocephin) 1 gm IVPUSH Q24H [facility] Famotidine (Pepcid) 20 mg PO DAILY PRN PRN Reason: Heartburn Guaifenesin/Phenylephrine HCl (Robitussin Dm) 10 ml PO Q6H PRN PRN Reason: Cough Azithromycin 500 mg/ Sodium (Chloride) 250 mls @ 250 mls/hr IV Q24H [facility] Ibuprofen (Motrin) 800 mg PO Q6H PRN PRN Reason: Pain, fever Insulin Aspart (Novolog) 0 unit SUBCUT .QID AC + HS [facility]; Protocol Non-Formulary Medication (Divalproex Sodium [Divalproex Sodium Er]) 1,500 mg PO BEDTIME [facility] Assessment/Plan Comment:: 58-year-old lady with a presented with intractable cough, shortness of breath. The patient was noted to have a right-sided pneumonia. The patient failed outpatient therapy with levofloxacin. I will admit the patient and Obtain sputum culture, blood culture start IV antibiotics with ceftriaxone and azithromycin. Use Robitussin for cough Tylenol and Motrin for fever Use DuoNeb scheduled and when necessary History of diabetes We will hold the metformin Use supplemental insulin as needed DVT prophylaxis with subcutaneous heparin
[2018-03-14] MEDS ORDERED: Azithromycin 500 MG Vial ONE (22:58)
[2018-03-14] MEDS: cefTRIAXone 1 GM Vial IVPUSH SCH (23:12)
[2018-03-14] MEDS: Azithromycin 500 MG in Sodium Chloride 0.9% 250 ML IV SCH (23:12)
[2018-03-14] MEDS: Divalproex Sodium 250 MG Tab.ER PO SCH (23:27)
[2018-03-14] MEDS: Zolpidem 5 MG Tab PO PRN (23:29)
[2018-03-14] MEDS: Docusate Sodium 100 MG Cap PO PRN (23:29)
[2018-03-14] MEDS: Insulin Aspart 100 Units/ML 3 ML Pen SUBCUT SCH (23:30)
[2018-03-15 06:51] LABS: ANION GAP 15.1; CHLORIDE,CL 104 mmol/L (101-111); SODIUM,NA 141 mmol/L (135-145)
[2018-03-15] MEDS: Insulin Aspart 100 Units/ML 3 ML Pen SUBCUT SCH ×4 (07:46→21:15)
[2018-03-15] MEDS: Albuterol/Ipratropium 3.0-0.5 MG/3 ML Neb Soln NEB SCH ×2 (08:21→17:50)
[2018-03-15] MEDS: Ibuprofen 800 MG Tab PO PRN ×2 (09:36→21:20)
--- NOTE | 2018-03-15 10:22 | PCM.PN ---
- General Info Date of Service: 03/15/18 Admission Dx/Problem (Free Text): Presented with cough. The patient was admitted with pneumonia. Subjective Update: This morning she is feeling well. She continued to have cough. This is nonproductive. Associated with the chest pain when coughing. The pain is described as burning. The patient still noted to have hypoxemia and that has been requiring oxygen supplement. No abdominal pain, no diarrhea. Functional Status: Reports: Pain Controlled - Review of Systems Pulmonary: Reports: Shortness of Breath, Cough. Denies: Sputum Cardiovascular: Reports: Chest Pain (With cough). Denies: Palpitations Gastrointestinal: Denies: Abdominal Pain Genitourinary: Denies: Dysuria - Patient Data Vitals - Most Recent: Last Vital Signs Temp 36.8 C 03/15/18 08:41 Pulse 87 03/15/18 08:41 Resp 20 03/15/18 08:41 BP 118/65 03/15/18 08:41 Pulse Ox 93 L 03/15/18 08:41 Weight - Most Recent: 99.427 kg I&O - Last 24 Hours: Intake & Output 03/14/18 03/15/18 03/15/18 22:59 06:59 14:59 Intake Total 500 200 Balance 500 200 Lab Results Last 24 Hours: Laboratory Results - last 24 hr 03/14/18 03/14/18 03/14/18 Range/Units 20:22 20:22 20:22 WBC 4.6 L (5.0-10.0) 10^3/uL RBC 4.06 L (4.2-5.4) 10^6/uL Hgb 13.3 (12.0-16.0) g/dL Hct 39.8 (37.0-47.0) % MCV 98.0 D (80-100) fL MCH 32.8 (27.0-34.0) pg MCHC 33.4 (33.0-35.0) g/dL Plt Count 157 (150-450) 10^3/uL Neut % (Auto) 55.2 (42.2-75.2) % Lymph % (Auto) 29.9 (20.5-50.1) % Sandoval % (Auto) 12.5 H (2-8) % Eos % (Auto) 2.4 (1.0-3.0) % Baso % (Auto) 0.0 (0.0-1.0) % Sodium 139 (135-145) mmol/L Potassium 3.2 L (3.6-5.0) mmol/L Chloride 103 (101-111) mmol/L Carbon Dioxide 27.0 (21.0-31.0) mmol/L Anion Gap 12.2 BUN 11 (7-18) mg/dL Creatinine 0.8 (0.6-1.3) mg/dL Est Cr Clr Drug Dosing 61.86 mL/min Estimated GFR (MDRD) > 60 BUN/Creatinine Ratio 13.75 Glucose 191 H (74-105) mg/dL POC Glucose (70-105) mg/dl Lactic Acid 1.6 (0.5-2.2) mmol/L Calcium 9.1 (8.4-10.2) mg/dl Total Bilirubin 0.5 (0.2-1.0) mg/dL AST 32 (10-42) IU/L ALT 18 (10-60) IU/L Alkaline Phosphatase 61 (42-121) IU/L Total Protein 7.5 (6.7-8.2) g/dl Albumin 3.4 (3.2-5.5) g/dl Globulin 4.1 Albumin/Globulin Ratio 0.83 03/14/18 03/15/18 03/15/18 Range/Units 23:00 06:10 06:10 WBC 5.0 (5.0-10.0) 10^3/uL RBC 3.77 L (4.2-5.4) 10^6/uL Hgb 12.0 (12.0-16.0) g/dL Hct 38.0 (37.0-47.0) % MCV 100.8 H (80-100) fL MCH 31.8 (27.0-34.0) pg MCHC 31.6 L (33.0-35.0) g/dL Plt Count 157 (150-450) 10^3/uL Neut % (Auto) 39.7 L (42.2-75.2) % Lymph % (Auto) 41.1 (20.5-50.1) % Sandoval % (Auto) 17.0 H (2-8) % Eos % (Auto) 2.0 (1.0-3.0) % Baso % (Auto) 0.2 (0.0-1.0) % Sodium 141 (135-145) mmol/L Potassium 3.1 L (3.6-5.0) mmol/L Chloride 104 (101-111) mmol/L Carbon Dioxide 25.0 (21.0-31.0) mmol/L Anion Gap 15.1 BUN 12 (7-18) mg/dL Creatinine 0.7 (0.6-1.3) mg/dL Est Cr Clr Drug Dosing 70.70 mL/min Estimated GFR (MDRD) > 60 BUN/Creatinine Ratio Glucose 93 (74-105) mg/dL POC Glucose 106 H (70-105) mg/dl Lactic Acid (0.5-2.2) mmol/L Calcium 8.8 (8.4-10.2) mg/dl Total Bilirubin (0.2-1.0) mg/dL AST (10-42) IU/L ALT (10-60) IU/L Alkaline Phosphatase (42-121) IU/L Total Protein (6.7-8.2) g/dl Albumin (3.2-5.5) g/dl Globulin Albumin/Globulin Ratio 03/15/ Range/Units 07:31 WBC (5.0-10.0) 10^3/uL RBC (4.2-5.4) 10^6/uL Hgb (12.0-16.0) g/dL Hct (37.0-47.0) % MCV (80-100) fL MCH (27.0-34.0) pg MCHC (33.0-35.0) g/dL Plt Count (150-450) 10^3/uL Neut % (Auto) (42.2-75.2) % Lymph % (Auto) (20.5-50.1) % Sandoval % (Auto) (2-8) % Eos % (Auto) (1.0-3.0) % Baso % (Auto) (0.0-1.0) % Sodium (135-145) mmol/L Potassium (3.6-5.0) mmol/L Chloride (101-111) mmol/L Carbon Dioxide (21.0-31.0) mmol/L Anion Gap BUN (7-18) mg/dL Creatinine (0.6-1.3) mg/dL Est Cr Clr Drug Dosing mL/min Estimated GFR (MDRD) BUN/Creatinine Ratio Glucose (74-105) mg/dL POC Glucose 94 (70-105) mg/dl Lactic Acid (0.5-2.2) mmol/L Calcium (8.4-10.2) mg/dl Total Bilirubin (0.2-1.0) mg/dL AST (10-42) IU/L ALT (10-60) IU/L Alkaline Phosphatase (42-121) IU/L Total Protein (6.7-8.2) g/dl Albumin (3.2-5.5) g/dl Globulin Albumin/Globulin Ratio Med Orders - Current: Current Medications Acetaminophen (Tylenol) 650 mg PO Q4H PRN PRN Reason: Pain (Mild 1-3)/fever Albuterol/Ipratropium (Duoneb 3.0-0.5 Mg/3 Ml) 3 ml NEB Q4HRRT PRN PRN Reason: sob Last Admin: 03/14/18 23:19 Dose: 3 ml Albuterol/Ipratropium (Duoneb 3.0-0.5 Mg/3 Ml) 3 ml NEB BIDRT [facility] Last Admin: 03/15/18 08:21 Dose: 3 ml Aspirin (Aspirin) 81 mg PO BEDTIME [facility] Atorvastatin Calcium (Lipitor) 10 mg PO BEDTIME [facility] Ceftriaxone Sodium (Rocephin) 1 gm IVPUSH Q24H [facility] Last Admin: 03/14/18 23:12 Dose: 1 gm Divalproex Sodium (Depakote Er) 1,500 mg PO BEDTIME [facility] Last Admin: 03/14/18 23:27 Dose: 1,500 mg Docusate Sodium (Colace) 100 mg PO BID PRN PRN Reason: Constipation Last Admin: 03/14/18 23:29 Dose: 100 mg Famotidine (Pepcid) 20 mg PO DAILY PRN PRN Reason: Heartburn Last Admin: 03/14/18 23:16 Dose: 20 mg Guaifenesin/Phenylephrine HCl (Robitussin Dm) 10 ml PO Q6H PRN PRN Reason: Cough Azithromycin 500 mg/ Sodium (Chloride) 250 mls @ 250 mls/hr IV Q24H [facility] Last Admin: 03/14/18 23:12 Dose: 250 mls/hr Ibuprofen (Motrin) 800 mg PO Q6H PRN PRN Reason: Pain, fever Last Admin: 03/15/18 09:36 Dose: 800 mg Insulin Aspart (Novolog) 0 unit SUBCUT ACBED [facility]; Protocol Last Admin: 03/15/18 07:46 Dose: Not Given Ondansetron HCl (Zofran Odt) 4 mg PO Q4H PRN PRN Reason: nausea, able to take PO Potassium Chloride (Klor-Con 10) 40 meq PO BIDMEALS [facility] Stop: 03/15/18 18:01 Sodium Chloride (Saline Flush) 10 ml FLUSH ASDIRECTED PRN PRN Reason: Keep Vein Open Zolpidem Tartrate (Ambien) 5 mg PO BEDTIME PRN PRN Reason: Sleep Last Admin: 03/14/18 23:29 Dose: 5 mg Discontinued Medications Albuterol/Ipratropium (Duoneb 3.0-0.5 Mg/3 Ml) 3 ml NEB ONETIME ONE Stop: 03/14/18 20:38 Last Admin: 03/14/18 20:41 Dose: 3 ml Azithromycin (Zithromax) Confirm Administered Dose 500 mg .ROUTE .STK-MED ONE Stop: 03/14/18 22:59 Last Admin: 03/14/18 23:24 Dose: Not Given - Exam Quality Assessment: Supplemental Oxygen General: Alert, Oriented Neck: Supple Lungs: Clear to Auscultation, Normal Respiratory Effort Cardiovascular: Regular Rate, Regular Rhythm GI/Abdominal Exam: Normal Bowel Sounds, Soft, Non-Tender Extremities: No Pedal Edema - Problem List & Annotations (1) Pneumonia SNOMED Code(s): 256807506 Code(s): J18.9 - PNEUMONIA, UNSPECIFIED ORGANISM Status: Acute Current Visit: No Qualifiers: Pneumonia type: due to unspecified organism Laterality: right Lung location: lower lobe of lung Qualified Code(s): J18.1 - Lobar pneumonia, unspecified organism - Problem List Review Problem List Initiated/Reviewed/Updated: Yes - My Orders Last 24 Hours: My Active Orders 03/14/18 22:47 CULTURE SPUTUM + SMEAR [RM] Routine Dextromethorphan/guaiFENesin [Robitussin DM] 10 ml PO Q6H PRN 03/14/18 22:48 RT Aerosol Therapy [RC] ASDIRECTED Albuterol/Ipratropium [DuoNeb 3.0-0.5 MG/3 ML] 3 ml NEB Q4HRRT PRN 03/14/18 22:49 Famotidine [Pepcid] 20 mg PO DAILY PRN Ibuprofen [Motrin] 800 mg PO Q6H PRN 03/14/18 22:50 Glucose [Blood Glucose Check, Bedside] [RC] QIDACANDBED 03/14/18 22:57 Patient Status [ADT] Routine Oxygen Therapy [RC] PRN Up With Assistance [RC] ASDIRECTED VTE/DVT Education [RC] PER UNIT ROUTINE Vital Signs [RC] Q4H Acetaminophen [Tylenol] 650 mg PO Q4H PRN Docusate Sodium [Colace] 100 mg PO BID PRN Ondansetron [Zofran ODT] 4 mg PO Q4H PRN Sodium Chloride 0.9% [Saline Flush] 10 ml FLUSH ASDIRECTED PRN Zolpidem [Ambien] 5 mg PO BEDTIME PRN Peripheral IV Insertion Adult [OM.PC] Routine Saline Lock Insert [OM.PC] Routine Resuscitation Status Routine 03/14/18 22:58 Peripheral IV Care [RC] . DIRECTED 03/14/18 23:00 Azithromycin [Zithromax] 500 mg Sodium Chloride 0.9% [Normal Saline] 250 ml IV Q24H Divalproex Sodium [Depakote ER] 1,500 mg PO BEDTIME Insulin Aspart [NovoLOG] See Protocol SUBCUT ACBED cefTRIAXone [Rocephin] 1 gm IVPUSH Q24H 03/15/18 07:00 Albuterol/Ipratropium [DuoNeb 3.0-0.5 MG/3 ML] 3 ml NEB BIDRT 03/15/18 11:00 Potassium Chloride [Klor-Con 10] 40 meq PO BIDMEALS 03/15/18 21:00 Aspirin 81 mg PO BEDTIME atorvaSTATin [Lipitor] 10 mg PO BEDTIME 03/16/18 05:15 BASIC METABOLIC PANEL,BMP [CHEM] AM CBC WITH AUTO DIFF [HEME] AM - Plan Plan:: 58-year-old lady with a presented with intractable cough, shortness of breath. The patient was noted to have a right-sided pneumonia. The patient failed outpatient therapy with levofloxacin. pneumonia sputum culture: pending blood culture: pending treat with ceftriaxone and azithromycin. Use Robitussin for cough Tylenol and Motrin for fever Use DuoNeb scheduled and when necessary History of diabetes We will hold the metformin Use supplemental insulin as needed DVT prophylaxis with subcutaneous heparin
[2018-03-15] MEDS: Potassium Chloride 10 MEQ Tab.ER PO SCH ×2 (11:23→17:13)
[2018-03-15] MEDS: guaiFENesin/Dextromethorphan 100-10 MG/5 ML Soln 5 ML Cup PO PRN (16:39)
[2018-03-15] MEDS: Aspirin 81 MG Tab.Chew PO SCH (21:16)
[2018-03-15] MEDS: atorvaSTATin 20 MG Tab PO SCH (21:16)
[2018-03-15] MEDS: Divalproex Sodium 250 MG Tab.ER PO SCH (21:18)
[2018-03-15] MEDS: Docusate Sodium 100 MG Cap PO PRN (21:20)
[2018-03-15] MEDS: Sodium Chloride 0.9% 10 ML Syringe FLUSH PRN (22:52)
[2018-03-15] MEDS: cefTRIAXone 1 GM Vial IVPUSH SCH (22:53)
[2018-03-15] MEDS: Azithromycin 500 MG in Sodium Chloride 0.9% 250 ML IV SCH (23:01)
[2018-03-15] MEDS: Zolpidem 5 MG Tab PO PRN (23:06)
[2018-03-16] MEDS: Sodium Chloride 0.9% 10 ML Syringe FLUSH PRN ×3 (00:30→23:04)
[2018-03-16] MEDS: Albuterol/Ipratropium 3.0-0.5 MG/3 ML Neb Soln NEB SCH ×2 (07:45→18:20)
[2018-03-16] MEDS: Insulin Aspart 100 Units/ML 3 ML Pen SUBCUT SCH ×4 (08:09→21:17)
[2018-03-16] MEDS: Ibuprofen 800 MG Tab PO PRN ×2 (08:46→23:08)
[2018-03-16] MEDS: guaiFENesin/Dextromethorphan 100-10 MG/5 ML Soln 5 ML Cup PO PRN ×2 (08:47→23:09)
--- NOTE | 2018-03-16 09:54 | PCM.PN ---
- General Info Date of Service: 03/16/18 Admission Dx/Problem (Free Text): Presented with cough. The patient was admitted with pneumonia. Subjective Update: overnight has been on Bipap but O2 sats were low at 88 - was switched to [place] oxygen continues to have a dry coigh no sputum sob is less no nasal discharge associated with this - Review of Systems General: Denies: Fever Pulmonary: Reports: Shortness of Breath Cardiovascular: Reports: Chest Pain (with cough) Gastrointestinal: Denies: Abdominal Pain Neurological: Denies: Confusion - Patient Data Vitals - Most Recent: Last Vital Signs Temp 36.5 C 03/16/18 07:58 Pulse 64 03/16/18 07:58 Resp 20 03/16/18 07:58 BP 135/78 03/16/18 07:58 Pulse Ox 95 03/16/18 07:58 Weight - Most Recent: 99.427 kg I&O - Last 24 Hours: Intake & Output 03/15/18 03/16/18 03/16/18 22:59 06:59 14:59 Intake Total 715 842 Output Total 100 Balance 615 842 Lab Results Last 24 Hours: Laboratory Results - last 24 hr 03/15/18 03/15/18 03/15/18 Range/Units 11:17 16:57 21:02 WBC (5.0-10.0) 10^3/uL RBC (4.2-5.4) 10^6/uL Hgb (12.0-16.0) g/dL Hct (37.0-47.0) % MCV (80-100) fL MCH (27.0-34.0) pg MCHC (33.0-35.0) g/dL Plt Count (150-450) 10^3/uL Neut % (Auto) (42.2-75.2) % Lymph % (Auto) (20.5-50.1) % Gray % (Auto) (2-8) % Eos % (Auto) (1.0-3.0) % Baso % (Auto) (0.0-1.0) % Add Manual Diff Neutrophils % (Manual) (42-75) % Band Neutrophils % % Lymphocytes % (Manual) (20-50) % Monocytes % (Manual) (2-8) % Eosinophils % (Manual) (1-3) % Basophils % (Manual) Macrocytosis POC Glucose 118 H 116 H 124 H (70-105) mg/dl 03/16/18 03/16/18 Range/Units 06:25 07:47 WBC 4.2 L (5.0-10.0) 10^3/uL RBC 3.66 L (4.2-5.4) 10^6/uL Hgb 11.7 L (12.0-16.0) g/dL Hct 37.0 (37.0-47.0) % MCV 101.1 H (80-100) fL MCH 32.0 (27.0-34.0) pg MCHC 31.6 L (33.0-35.0) g/dL Plt Count 164 (150-450) 10^3/uL Neut % (Auto) 24.5 L (42.2-75.2) % Lymph % (Auto) 56.5 H (20.5-50.1) % Gray % (Auto) 12.6 H (2-8) % Eos % (Auto) 6.2 H (1.0-3.0) % Baso % (Auto) 0.2 (0.0-1.0) % Add Manual Diff Yes Neutrophils % (Manual) 23 L (42-75) % Band Neutrophils % 3 % Lymphocytes % (Manual) 56 H (20-50) % Monocytes % (Manual) 9 H (2-8) % Eosinophils % (Manual) 7 H (1-3) % Basophils % (Manual) 2 Macrocytosis 2+ moderate POC Glucose 91 (70-105) mg/dl Soren Results Last 24 Hours: Microbiology 03/14/18 20:22 Aerobic Blood Culture - Preliminary Blood NO GROWTH AFTER 1 DAY Anaerobic Blood Culture - Preliminary NO GROWTH AFTER 1 DAY Med Orders - Current: Current Medications Acetaminophen (Tylenol) 650 mg PO Q4H PRN PRN Reason: Pain (Mild 1-3)/fever Albuterol/Ipratropium (Duoneb 3.0-0.5 Mg/3 Ml) 3 ml NEB Q4HRRT PRN PRN Reason: sob Last Admin: 03/14/18 23:19 Dose: 3 ml Albuterol/Ipratropium (Duoneb 3.0-0.5 Mg/3 Ml) 3 ml NEB BIDRT [facility] Last Admin: 03/16/18 07:45 Dose: 3 ml Aspirin (Aspirin) 81 mg PO BEDTIME [facility] Last Admin: 03/15/18 21:16 Dose: 81 mg Atorvastatin Calcium (Lipitor) 10 mg PO BEDTIME [facility] Last Admin: 03/15/18 21:16 Dose: 10 mg Ceftriaxone Sodium (Rocephin) 1 gm IVPUSH Q24H [facility] Last Admin: 03/15/18 22:53 Dose: 1 gm Divalproex Sodium (Depakote Er) 1,500 mg PO BEDTIME [facility] Last Admin: 03/15/18 21:18 Dose: 1,500 mg Docusate Sodium (Colace) 100 mg PO BID PRN PRN Reason: Constipation Last Admin: 03/15/18 21:20 Dose: 100 mg Famotidine (Pepcid) 20 mg PO DAILY PRN PRN Reason: Heartburn Last Admin: 03/14/18 23:16 Dose: 20 mg Guaifenesin/Phenylephrine HCl (Robitussin Dm) 10 ml PO Q6H PRN PRN Reason: Cough Last Admin: 03/16/18 08:47 Dose: 10 ml Azithromycin 500 mg/ Sodium (Chloride) 250 mls @ 250 mls/hr IV Q24H [facility] Last Infusion: 03/16/18 00:29 Dose: Infused Ibuprofen (Motrin) 800 mg PO Q6H PRN PRN Reason: Pain, fever Last Admin: 03/16/18 08:46 Dose: 800 mg Insulin Aspart (Novolog) 0 unit SUBCUT ACBED [facility]; Protocol Last Admin: 03/16/18 08:09 Dose: Not Given Ondansetron HCl (Zofran Odt) 4 mg PO Q4H PRN PRN Reason: nausea, able to take PO Sodium Chloride (Saline Flush) 10 ml FLUSH ASDIRECTED PRN PRN Reason: Keep Vein Open Last Admin: 03/16/18 08:48 Dose: 10 ml Zolpidem Tartrate (Ambien) 5 mg PO BEDTIME PRN PRN Reason: Sleep Last Admin: 03/15/18 23:06 Dose: 5 mg Discontinued Medications Albuterol/Ipratropium (Duoneb 3.0-0.5 Mg/3 Ml) 3 ml NEB ONETIME ONE Stop: 03/14/18 20:38 Last Admin: 03/14/18 20:41 Dose: 3 ml Azithromycin (Zithromax) Confirm Administered Dose 500 mg .ROUTE .STK-MED ONE Stop: 03/14/18 22:59 Last Admin: 03/14/18 23:24 Dose: Not Given Potassium Chloride (Klor-Con 10) 40 meq PO BIDMEALS [facility] Stop: 03/15/18 18:01 Last Admin: 03/15/18 17:13 Dose: 40 meq - Exam Quality Assessment: No: Supplemental Oxygen General: Alert, Oriented Lungs: Rhonchi (r side) Cardiovascular: Regular Rate, Regular Rhythm GI/Abdominal Exam: Normal Bowel Sounds, Soft, Non-Tender Extremities: No Pedal Edema - Problem List & Annotations (1) Pneumonia SNOMED Code(s): 164951639 Code(s): J18.9 - PNEUMONIA, UNSPECIFIED ORGANISM Status: Acute Current Visit: No Qualifiers: Pneumonia type: due to unspecified organism Laterality: right Lung location: lower lobe of lung Qualified Code(s): J18.1 - Lobar pneumonia, unspecified organism - Problem List Review Problem List Initiated/Reviewed/Updated: Yes - My Orders Last 24 Hours: My Active Orders 03/15/18 17:04 CPAP Adult [RT BiPAP/CPAP] [RC] BEDTIME 03/15/18 21:00 Aspirin 81 mg PO BEDTIME atorvaSTATin [Lipitor] 10 mg PO BEDTIME 03/16/18 06:25 BASIC METABOLIC PANEL,BMP [CHEM] AM 03/17/18 05:15 BASIC METABOLIC PANEL,BMP [CHEM] AM CBC WITH AUTO DIFF [HEME] AM - Plan Plan:: 58-year-old lady with a presented with intractable cough, shortness of breath. The patient was noted to have a right-sided pneumonia. The patient failed outpatient therapy with levofloxacin. pneumonia sputum culture: pending blood culture: pending - neg for now treat with ceftriaxone and azithromycin. Use Robitussin for cough Tylenol and Motrin for fever Use DuoNeb scheduled and when necessary History of diabetes We will hold the metformin Use supplemental insulin as needed JENNIFER cpap at night or [place] oxygen if hypoxemic - no oxygen port on her cpap machine DVT prophylaxis with subcutaneous heparin
[2018-03-16 10:02] LABS: ANION GAP 13.8; CHLORIDE,CL 107 mmol/L (101-111); SODIUM,NA 141 mmol/L (135-145)
[2018-03-16] MEDS: Aspirin 81 MG Tab.Chew PO SCH (21:15)
[2018-03-16] MEDS: Divalproex Sodium 250 MG Tab.ER PO SCH (21:15)
[2018-03-16] MEDS: atorvaSTATin 20 MG Tab PO SCH (21:15)
[2018-03-16] MEDS: cefTRIAXone 1 GM Vial IVPUSH SCH (23:04)
[2018-03-16] MEDS: Azithromycin 500 MG in Sodium Chloride 0.9% 250 ML IV SCH (23:13)
[2018-03-17] MEDS: Zolpidem 5 MG Tab PO PRN (03:09)
[2018-03-17 07:01] LABS: CHLORIDE,CL 106 mmol/L (101-111); SODIUM,NA 141 mmol/L (135-145)
[2018-03-17] MEDS: Insulin Aspart 100 Units/ML 3 ML Pen SUBCUT SCH ×4 (08:43→21:16)
[2018-03-17] MEDS: Albuterol/Ipratropium 3.0-0.5 MG/3 ML Neb Soln NEB SCH ×2 (09:03→17:18)
--- NOTE | 2018-03-17 11:51 | PCM.PN ---
- General Info Date of Service: 03/17/18 Admission Dx/Problem (Free Text): Presented with cough.The patient was admitted with pneumonia. Subjective Update: Pt was seen in room,overnight has been on Bipap but O2 sats were low and was switched to [place] oxygen, continues to have a dry cough,no sputum, could not sleep well last night,feels week in lower extremity Functional Status: Reports: Pain Controlled, Tolerating Diet, Ambulating, Urinating - Review of Systems General: Reports: Appetite (acceptable). Denies: Fever, Chills HEENT: Denies: Headaches, Sinus Congestion, Sore Throat, Visual Changes Pulmonary: Reports: Shortness of Breath, Cough. Denies: Sputum, Wheezing Cardiovascular: Denies: Chest Pain, Dyspnea on Exertion, Edema, Lightheadedness Gastrointestinal: Denies: Abdominal Pain, Diarrhea, Difficulty Swallowing, Nausea, Vomiting Genitourinary: Denies: Dysuria, Frequency, Burning, Urgency, Flank Pain Musculoskeletal: Denies: Neck Pain, Shoulder Pain, Joint Pain, Joint Swelling Skin: Denies: Cyanosis, Jaundice, Dryness, Bruising, Pruritis, Rash Neurological: Denies: Confusion, Paresthesia, Tremors, Trouble Speaking, Gait Disturbance Psychiatric: Denies: Anxiety, Hallucinations - Patient Data Vitals - Most Recent: Last Vital Signs Temp 36.8 C 03/17/18 08:36 Pulse 78 03/17/18 08:36 Resp 20 03/17/18 08:36 BP 138/68 03/17/18 08:36 Pulse Ox 93 L 03/17/18 08:36 Weight - Most Recent: 99.427 kg I&O - Last 24 Hours: Intake & Output 03/16/18 03/17/18 03/17/18 22:59 06:59 14:59 Intake Total 300 500 560 Balance 300 500 560 Lab Results Last 24 Hours: Laboratory Results - last 24 hr 03/16/18 03/16/18 03/17/18 Range/Units 16:17 20:33 06:15 WBC 4.5 L (5.0-10.0) 10^3/uL RBC 3.60 L (4.2-5.4) 10^6/uL Hgb 11.4 L (12.0-16.0) g/dL Hct 36.3 L (37.0-47.0) % MCV 100.8 H (80-100) fL MCH 31.7 (27.0-34.0) pg MCHC 31.4 L (33.0-35.0) g/dL Plt Count 152 (150-450) 10^3/uL Neut % (Auto) 24.3 L (42.2-75.2) % Lymph % (Auto) 58.9 H (20.5-50.1) % [place] % (Auto) 10.2 H (2-8) % Eos % (Auto) 6.4 H (1.0-3.0) % Baso % (Auto) 0.2 (0.0-1.0) % Sodium (135-145) mmol/L Potassium (3.6-5.0) mmol/L Chloride (101-111) mmol/L Carbon Dioxide (21.0-31.0) mmol/L Anion Gap BUN (7-18) mg/dL Creatinine (0.6-1.3) mg/dL Est Cr Clr Drug Dosing mL/min Estimated GFR (MDRD) Glucose (74-105) mg/dL POC Glucose 115 H 180 H (70-105) mg/dl Calcium (8.4-10.2) mg/dl 03/17/18 03/17/18 03/17/18 Range/Units 06:15 07:46 11:15 WBC (5.0-10.0) 10^3/uL RBC (4.2-5.4) 10^6/uL Hgb (12.0-16.0) g/dL Hct (37.0-47.0) % MCV (80-100) fL MCH (27.0-34.0) pg MCHC (33.0-35.0) g/dL Plt Count (150-450) 10^3/uL Neut % (Auto) (42.2-75.2) % Lymph % (Auto) (20.5-50.1) % [place] % (Auto) (2-8) % Eos % (Auto) (1.0-3.0) % Baso % (Auto) (0.0-1.0) % Sodium 141 (135-145) mmol/L Potassium 4.0 (3.6-5.0) mmol/L Chloride 106 (101-111) mmol/L Carbon Dioxide 26.0 (21.0-31.0) mmol/L Anion Gap 13.0 BUN 16 (7-18) mg/dL Creatinine 0.7 (0.6-1.3) mg/dL Est Cr Clr Drug Dosing 70.70 mL/min Estimated GFR (MDRD) > 60 Glucose 88 (74-105) mg/dL POC Glucose 94 144 H (70-105) mg/dl Calcium 8.6 (8.4-10.2) mg/dl Soren Results Last 24 Hours: Microbiology 03/14/18 20:22 Aerobic Blood Culture - Preliminary Blood NO GROWTH AFTER 2 DAYS Anaerobic Blood Culture - Preliminary NO GROWTH AFTER 2 DAYS Med Orders - Current: Current Medications Acetaminophen (Tylenol) 650 mg PO Q4H PRN PRN Reason: Pain (Mild 1-3)/fever Albuterol/Ipratropium (Duoneb 3.0-0.5 Mg/3 Ml) 3 ml NEB Q4HRRT PRN PRN Reason: sob Last Admin: 03/14/18 23:19 Dose: 3 ml Albuterol/Ipratropium (Duoneb 3.0-0.5 Mg/3 Ml) 3 ml NEB BIDRT [facility] Last Admin: 03/17/18 09:03 Dose: 3 ml Aspirin (Aspirin) 81 mg PO BEDTIME [facility] Last Admin: 03/16/18 21:15 Dose: 81 mg Atorvastatin Calcium (Lipitor) 10 mg PO BEDTIME [facility] Last Admin: 03/16/18 21:15 Dose: 10 mg Ceftriaxone Sodium (Rocephin) 1 gm IVPUSH Q24H [facility] Last Admin: 03/16/18 23:04 Dose: 1 gm Divalproex Sodium (Depakote Er) 1,500 mg PO BEDTIME [facility] Last Admin: 03/16/18 21:15 Dose: 1,500 mg Docusate Sodium (Colace) 100 mg PO BID PRN PRN Reason: Constipation Last Admin: 03/15/18 21:20 Dose: 100 mg Famotidine (Pepcid) 20 mg PO DAILY PRN PRN Reason: Heartburn Last Admin: 03/14/18 23:16 Dose: 20 mg Guaifenesin/Phenylephrine HCl (Robitussin Dm) 10 ml PO Q6H PRN PRN Reason: Cough Last Admin: 03/16/18 23:09 Dose: 10 ml Heparin Sodium (Porcine) (Heparin Sodium) 5,000 units SUBCUT Q8H [facility] Azithromycin 500 mg/ Sodium (Chloride) 250 mls @ 250 mls/hr IV Q24H [facility] Last Admin: 03/16/18 23:13 Dose: 250 mls/hr Piperacillin Sod/Tazobactam (Sod 3.375 gm/ Sodium Chloride) 100 mls @ 200 mls/ hr IV Q6H [facility] Ibuprofen (Motrin) 800 mg PO Q6H PRN PRN Reason: Pain, fever Last Admin: 03/16/18 23:08 Dose: 800 mg Insulin Aspart (Novolog) 0 unit SUBCUT ACBED [facility]; Protocol Last Admin: 03/17/18 11:24 Dose: Not Given Ondansetron HCl (Zofran Odt) 4 mg PO Q4H PRN PRN Reason: nausea, able to take PO Sodium Chloride (Saline Flush) 10 ml FLUSH ASDIRECTED PRN PRN Reason: Keep Vein Open Last Admin: 03/16/18 23:04 Dose: 10 ml Zolpidem Tartrate (Ambien) 5 mg PO BEDTIME PRN PRN Reason: Sleep Last Admin: 03/17/18 03:09 Dose: 5 mg Discontinued Medications Albuterol/Ipratropium (Duoneb 3.0-0.5 Mg/3 Ml) 3 ml NEB ONETIME ONE Stop: 03/14/18 20:38 Last Admin: 03/14/18 20:41 Dose: 3 ml Azithromycin (Zithromax) Confirm Administered Dose 500 mg .ROUTE .STK-MED ONE Stop: 03/14/18 22:59 Last Admin: 03/14/18 23:24 Dose: Not Given Heparin Sodium (Porcine) (Heparin Sodium) 5,000 units SUBCUT Q8H [facility] Potassium Chloride (Klor-Con 10) 40 meq PO BIDMEALS [facility] Stop: 03/15/18 18:01 Last Admin: 03/15/18 17:13 Dose: 40 meq - Exam Quality Assessment: Supplemental Oxygen, DVT Prophylaxis. No: Urine Catheter, Skin Breakdown General: Alert, Oriented, Cooperative, No Acute Distress HEENT: Pupils Equal, Pupils Reactive, Mucous Membr. Moist/[place] Neck: Supple, No JVD, No Thyromegaly Lungs: Clear to Auscultation, Normal Respiratory Effort, Decreased Breath Sounds (to rt lower base). No: Crackles, Wheezing Cardiovascular: Regular Rate, Regular Rhythm, No Murmurs GI/Abdominal Exam: Normal Bowel Sounds, Non-Tender, No Organomegaly. No: Guarding, Rebound (Female) Exam: Deferred Back Exam: Normal Inspection, Full Range of Motion Extremities: Normal Inspection, No Pedal Edema Skin: Warm, Dry Neurological: No New Focal Deficit Psy/Mental Status: Alert, Normal Affect, Normal Mood - Problem List Review Problem List Initiated/Reviewed/Updated: Yes - My Orders Last 24 Hours: My Active Orders 03/17/18 11:45 Piperacillin/Tazobactam [Zosyn] 3.375 gm Sodium Chloride 0.9% [Normal Saline] 100 ml IV Q6H 03/17/18 14:00 Heparin Sodium 5,000 units SUBCUT Q8H - Plan Plan:: 58-year-old Female presented with intractable cough, shortness of breath and noted to have right-sided pneumonia. The patient failed outpatient therapy with levofloxacin. Impression and Plan: 1. pneumonia sputum culture: pending ( no growth yet) blood culture: pending - neg for now _will continue ceftriaxone and azithromycin. -Will start Zosyn 3.375 mg q6 hrs - Continue Robitussin for cough -Tylenol and Motrin for fever - Use DuoNeb scheduled and when necessary -will give IS and use frequently 2. History of diabetes We will hold the metformin Use supplemental insulin as needed 3. JENNIFER - Continue cpap at night -or [place] oxygen if hypoxemic - no oxygen port on her cpap machine 4. DVT prophylaxis with subcutaneous heparin
[2018-03-17] MEDS ORDERED: Heparin Sodium 5,000 Units/ML Vial SUBCUT SCH (12:00)
[2018-03-17] MEDS: Sodium Chloride 0.9% 10 ML Syringe FLUSH PRN ×3 (12:20→22:44)
[2018-03-17] MEDS: Piperacillin/Tazobactam 3.375 GM in Sodium Chloride 0.9% 100 ML IV SCH ×2 (12:20→17:47)
[2018-03-17] MEDS: Heparin Sodium 5,000 Units/ML Vial SUBCUT SCH ×2 (14:06→22:42)
[2018-03-17] MEDS: Aspirin 81 MG Tab.Chew PO SCH (21:14)
[2018-03-17] MEDS: Divalproex Sodium 250 MG Tab.ER PO SCH (21:14)
[2018-03-17] MEDS: atorvaSTATin 20 MG Tab PO SCH (21:14)
[2018-03-17] MEDS: cefTRIAXone 1 GM Vial IVPUSH SCH (22:44)
[2018-03-17] MEDS: Azithromycin 500 MG in Sodium Chloride 0.9% 250 ML IV SCH (22:47)
[2018-03-18] MEDS: Piperacillin/Tazobactam 3.375 GM in Sodium Chloride 0.9% 100 ML IV SCH ×4 (00:01→17:45)
[2018-03-18] MEDS: Heparin Sodium 5,000 Units/ML Vial SUBCUT SCH ×3 (05:46→21:58)
[2018-03-18] MEDS: Insulin Aspart 100 Units/ML 3 ML Pen SUBCUT SCH ×4 (08:01→20:48)
[2018-03-18] MEDS: Albuterol/Ipratropium 3.0-0.5 MG/3 ML Neb Soln NEB SCH ×2 (09:13→17:28)
--- NOTE | 2018-03-18 10:05 | PCM.PN ---
- General Info Date of Service: 03/18/18 Admission Dx/Problem (Free Text): The patient was admitted with pneumonia. Subjective Update: Pt was seen in room,overnight has been on Bipap and did not need to switch to [place] oxygen, dry cough has improved significantly, no sputum, sleept well last night,feels week in lower extremity and now off supplemental oxygen but feels week Functional Status: Reports: Pain Controlled, Tolerating Diet, Ambulating, Urinating - Review of Systems General: Reports: Weakness, Malaise, Appetite (acceptable). Denies: Fever, Chills HEENT: Denies: Headaches, Sinus Congestion, Sore Throat, Visual Changes Pulmonary: Reports: Shortness of Breath, Cough. Denies: Sputum, Wheezing Cardiovascular: Denies: Chest Pain, Dyspnea on Exertion, Lightheadedness Gastrointestinal: Denies: Abdominal Pain, Diarrhea, Difficulty Swallowing, Nausea, Vomiting Genitourinary: Denies: Dysuria, Burning, Urgency, Flank Pain Musculoskeletal: Denies: Neck Pain, Hand Pain, Back Pain, Foot Pain, Joint Swelling Skin: Denies: Cyanosis, Jaundice, Bruising, Pruritis, Rash Neurological: Denies: Confusion, Tingling, Tremors Psychiatric: Denies: Confusion, Anxiety - Patient Data Vitals - Most Recent: Last Vital Signs Temp 36.6 C 03/18/18 07:58 Pulse 77 03/18/18 07:58 Resp 20 03/18/18 07:58 BP 131/68 03/18/18 07:58 Pulse Ox 93 L 03/18/18 07:58 Weight - Most Recent: 99.427 kg I&O - Last 24 Hours: Intake & Output 03/17/18 03/18/18 03/18/18 22:59 06:59 14:59 Intake Total 455 504 240 Balance 455 504 240 Lab Results Last 24 Hours: Laboratory Results - last 24 hr 03/17/18 03/17/18 03/17/18 Range/Units 11:15 16:43 20:38 POC Glucose 144 H 91 128 H (70-105) mg/dl 03/18/18 Range/Units 07:33 POC Glucose 93 (70-105) mg/dl Soren Results Last 24 Hours: Microbiology 03/14/18 20:22 Aerobic Blood Culture - Preliminary Blood NO GROWTH AFTER 3 DAYS Anaerobic Blood Culture - Preliminary NO GROWTH AFTER 3 DAYS Med Orders - Current: Current Medications Acetaminophen (Tylenol) 650 mg PO Q4H PRN PRN Reason: Pain (Mild 1-3)/fever Albuterol/Ipratropium (Duoneb 3.0-0.5 Mg/3 Ml) 3 ml NEB Q4HRRT PRN PRN Reason: sob Last Admin: 03/14/18 23:19 Dose: 3 ml Albuterol/Ipratropium (Duoneb 3.0-0.5 Mg/3 Ml) 3 ml NEB BIDRT [facility] Last Admin: 03/18/18 09:13 Dose: 3 ml Aspirin (Aspirin) 81 mg PO BEDTIME [facility] Last Admin: 03/17/18 21:14 Dose: 81 mg Atorvastatin Calcium (Lipitor) 10 mg PO BEDTIME [facility] Last Admin: 03/17/18 21:14 Dose: 10 mg Ceftriaxone Sodium (Rocephin) 1 gm IVPUSH Q24H [facility] Last Admin: 03/17/18 22:44 Dose: 1 gm Divalproex Sodium (Depakote Er) 1,500 mg PO BEDTIME [facility] Last Admin: 03/17/18 21:14 Dose: 1,500 mg Docusate Sodium (Colace) 100 mg PO BID PRN PRN Reason: Constipation Last Admin: 03/15/18 21:20 Dose: 100 mg Famotidine (Pepcid) 20 mg PO DAILY PRN PRN Reason: Heartburn Last Admin: 03/14/18 23:16 Dose: 20 mg Guaifenesin/Phenylephrine HCl (Robitussin Dm) 10 ml PO Q6H PRN PRN Reason: Cough Last Admin: 03/16/18 23:09 Dose: 10 ml Heparin Sodium (Porcine) (Heparin Sodium) 5,000 units SUBCUT Q8H [facility] Last Admin: 03/18/18 05:46 Dose: 5,000 units Azithromycin 500 mg/ Sodium (Chloride) 250 mls @ 250 mls/hr IV Q24H [facility] Last Admin: 03/17/18 22:47 Dose: 250 mls/hr Piperacillin Sod/Tazobactam (Sod 3.375 gm/ Sodium Chloride) 100 mls @ 200 mls/ hr IV Q6H [facility] Last Admin: 03/18/18 05:46 Dose: 200 mls/hr Ibuprofen (Motrin) 800 mg PO Q6H PRN PRN Reason: Pain, fever Last Admin: 03/18/18 00:00 Dose: 800 mg Insulin Aspart (Novolog) 0 unit SUBCUT ACBED [facility]; Protocol Last Admin: 03/18/18 08:01 Dose: Not Given Ondansetron HCl (Zofran Odt) 4 mg PO Q4H PRN PRN Reason: nausea, able to take PO Sodium Chloride (Saline Flush) 10 ml FLUSH ASDIRECTED PRN PRN Reason: Keep Vein Open Last Admin: 03/17/18 22:44 Dose: 10 ml Zolpidem Tartrate (Ambien) 5 mg PO BEDTIME PRN PRN Reason: Sleep Last Admin: 03/17/18 03:09 Dose: 5 mg Discontinued Medications Albuterol/Ipratropium (Duoneb 3.0-0.5 Mg/3 Ml) 3 ml NEB ONETIME ONE Stop: 03/14/18 20:38 Last Admin: 03/14/18 20:41 Dose: 3 ml Azithromycin (Zithromax) Confirm Administered Dose 500 mg .ROUTE .STK-MED ONE Stop: 03/14/18 22:59 Last Admin: 03/14/18 23:24 Dose: Not Given Heparin Sodium (Porcine) (Heparin Sodium) 5,000 units SUBCUT Q8H [facility] Potassium Chloride (Klor-Con 10) 40 meq PO BIDMEALS [facility] Stop: 03/15/18 18:01 Last Admin: 03/15/18 17:13 Dose: 40 meq - Exam Quality Assessment: DVT Prophylaxis. No: Supplemental Oxygen, Urine Catheter General: Alert, Oriented, Cooperative, No Acute Distress HEENT: Pupils Equal, Pupils Reactive Neck: Supple, No JVD, No Thyromegaly Lungs: Clear to Auscultation, Normal Respiratory Effort, Decreased Breath Sounds (Right lower lobe) Cardiovascular: Regular Rate, Regular Rhythm, Murmurs GI/Abdominal Exam: Normal Bowel Sounds, Soft, No Distention. No: Non-Tender, Guarding, Rigid, Rebound (Female) Exam: Deferred Back Exam: Normal Inspection, Full Range of Motion Extremities: Normal Inspection, No Pedal Edema Skin: Warm, Dry, Intact Neurological: No New Focal Deficit Psy/Mental Status: Alert, Normal Affect, Normal Mood - Problem List Review Problem List Initiated/Reviewed/Updated: Yes - My Orders Last 24 Hours: My Active Orders 03/17/18 12:00 Piperacillin/Tazobactam [Zosyn] 3.375 gm Sodium Chloride 0.9% [Normal Saline] 100 ml IV Q6H 03/17/18 14:00 Heparin Sodium 5,000 units SUBCUT Q8H - Plan Plan:: 58-year-old Female presented with intractable cough, shortness of breath and noted to have right lower lobe pneumonia. The patient failed outpatient therapy with levofloxacin. Impression and Plan: 1. Lobar pneumonia sputum culture: pending ( no growth yet) blood culture: No growth in 3 days _will continue ceftriaxone and azithromycin. -Will also continue Zosyn 3.375 mg q6 hrs - Continue Robitussin for cough -Tylenol and Motrin for fever - Use DuoNeb scheduled and when necessary -Advise to use IS and use frequently 2. History of diabetes We will hold the metformin Use supplemental insulin as needed 3. JENNIFER - Continue cpap at night -or [place] oxygen if hypoxemic - no oxygen port on her cpap machine 4. DVT prophylaxis with subcutaneous heparin 5. Disposition: Today she is off oxygen feels week and will likely go home tomorrow with oral antibiotics
[2018-03-18] MEDS: Sodium Chloride 0.9% 10 ML Syringe FLUSH PRN ×2 (11:52→17:45)
[2018-03-18] MEDS ORDERED: Albuterol/Ipratropium 3.0-0.5 MG/3 ML Neb Soln NEB PRN (17:30)
[2018-03-18] MEDS: Divalproex Sodium 250 MG Tab.ER PO SCH (20:42)
[2018-03-18] MEDS: Aspirin 81 MG Tab.Chew PO SCH (20:44)
[2018-03-18] MEDS: atorvaSTATin 20 MG Tab PO SCH (20:44)
[2018-03-18] MEDS: Ibuprofen 800 MG Tab PO PRN ×2 (22:49)
[2018-03-18] MEDS: cefTRIAXone 1 GM Vial IVPUSH SCH (22:50)
[2018-03-18] MEDS: Azithromycin 500 MG in Sodium Chloride 0.9% 250 ML IV SCH (23:04)
[2018-03-19] MEDS: Piperacillin/Tazobactam 3.375 GM in Sodium Chloride 0.9% 100 ML IV SCH ×3 (00:12→12:10)
[2018-03-19] MEDS: Heparin Sodium 5,000 Units/ML Vial SUBCUT SCH (05:37)
[2018-03-19] MEDS: Insulin Aspart 100 Units/ML 3 ML Pen SUBCUT SCH ×2 (07:44→12:10)
--- NOTE | 2018-03-19 10:10 | PCM.DCSUM1 ---
Discharge Summary - Hospital Course Free Text/Narrative:: The patient is a 58-year-old lady with a history of diabetes,she presented with the cough and it was going on for the last3-4 days prior to admission and getting worse, she was seen by PMD on 13 March was started on levofloxacin but still had no improvement. She was admitted with Right lobar pneumonia and was treated with IV Azithromycin, Ceftriaxone and Zosyn. she uses CPAP at home and has oxygen port on her CPAP machine, she was on [place] oxygen and gradually weaned off and now for the last 24 hrs she off oxygen and able to use CPAP at night. She will be going home on oral abx ( Augmentin 875 mg PO BID X 7 days) and will follow PMD in this week - Discharge Data Discharge Date: 03/19/18 Discharge Disposition: Home, Self-Care 01 Condition: Good - Patient Summary/Data Recommended Follow-up Testing/Procedures: follow with PMD in this week Hospital Course: The patient is a 58-year-old lady with a history of diabetes,she presented with the cough and it was going on for the last3-4 days prior to admission and getting worse, she was seen by PMD on 13 March was started on levofloxacin but still had no improvement. She was admitted with Right lobar pneumonia and was treated with IV Azithromycin, Ceftriaxone and Zosyn. she uses CPAP at home and has oxygen port on her CPAP machine, she was on [place] oxygen and gradually weaned off and now for the last 24 hrs she off oxygen and able to use CPAP at night. She will be going home on oral abx and will follow PMD in this week - Patient Instructions Diet: Regular Diet as Tolerated Activity: As Tolerated Showering/Bathing: May Shower Notify Provider of: Fever, Nausea and/or Vomiting Other/Special Instructions: The patient is a 58-year-old lady with a history of diabetes,she presented with the cough and it was going on for the last3-4 days prior to admission and getting worse, she was seen by PMD on 13 March was started on levofloxacin but still had no improvement. She was admitted with Right lobar pneumonia and was treated with IV Azithromycin, Ceftriaxone and Zosyn. she uses CPAP at home and has oxygen port on her CPAP machine, she was on [place] oxygen and gradually weaned off and now for the last 24 hrs she off oxygen and able to use CPAP at night. She will be going home on oral abx ( augmentin 875 mg PO BID X 7 days) and will follow PMD in this week - Discharge Plan Prescriptions/Med Rec: Amoxicillin/Potassium Clav [Augmentin 875-125 Tablet] 1 each PO BID #14 tablet Home Medications: Home Meds Divalproex Sodium [Divalproex Sodium ER] 1,500 mg PO BEDTIME 07/14/14 [History] metFORMIN HCl [Metformin HCl ER] 1,000 mg PO BID 07/14/14 [History] Aspirin 81 mg PO BEDTIME 11/20/15 [History] Famotidine [Pepcid] 20 mg PO DAILY PRN 11/20/15 [History] Ibuprofen [Motrin] 800 mg PO Q6H PRN 11/20/15 [History] atorvaSTATin [Lipitor] 10 mg PO BEDTIME 11/20/15 [History] Amoxicillin/Potassium Clav [Augmentin 875-125 Tablet] 1 each PO BID #14 tablet 03/19/18 [Rx] Patient Handouts: Type 2 Diabetes Mellitus, Diagnosis, Adult, Community- Acquired Pneumonia, Adult Referrals: PCP,Unobtain [Primary Care Provider] - - Discharge Summary/Plan Comment DC Time >30 min.: Yes Discharge Summary/Plan Comment: 58-year-old Female presented with intractable cough, shortness of breath and noted to have right lower lobe pneumonia. The patient failed outpatient therapy with levofloxacin. Impression and Plan: 1. Lobar pneumonia -blood culture: No growth in 3 days -will go home on Augmentin 875 mg PO BID x 7 days - use Tylenol and Motrin for fever -Follow with PMD in this week, pt advise to call and make appointment 2. History of diabetes - will continue metformin 3. JENNIFER - Continue cpap at night 4. Disposition: Will be going home today and follow PMD in this week, pt advised to call and make appointment - General Info Date of Service: 03/19/18 Admission Dx/Problem (Free Text: The patient was admitted with pneumonia. Subjective Update: Pt was seen in room,overnight has been on CPAP dry cough has improved significantly, no sputum, sleept well last night, and now off supplemental oxygen for more than 24 hrs and she will be going home today Functional Status: Reports: Pain Controlled, Tolerating Diet, Ambulating, Urinating - Review of Systems General: Reports: Appetite (good). Denies: Fever, Malaise, Chills HEENT: Denies: Headaches, Sinus Congestion, Sore Throat, Visual Changes Pulmonary: Reports: Cough (mild). Denies: Shortness of Breath, Wheezing Cardiovascular: Denies: Chest Pain, Dyspnea on Exertion, Lightheadedness Gastrointestinal: Denies: Constipation, Diarrhea, Nausea, Vomiting Genitourinary: Denies: Dysuria, Frequency, Burning, Urgency, Flank Pain Musculoskeletal: Denies: Neck Pain, Foot Pain, Joint Swelling Skin: Denies: Cyanosis, Bruising, Pruritis, Rash Neurological: Denies: Numbness, Tremors Psychiatric: Denies: Confusion, Anxiety - Patient Data Vitals - Most Recent: Last Vital Signs Temp 36.2 C 03/19/18 07:55 Pulse 64 03/19/18 07:55 Resp 20 03/19/18 07:55 BP 135/50 L 03/19/18 07:55 Pulse Ox 92 L 03/19/18 07:55 Weight - Most Recent: 99.427 kg I&O - Last 24 hours: Intake & Output 03/18/18 03/19/18 03/19/18 22:59 06:59 14:59 Intake Total 330 774 Balance 330 774 Lab Results - Last 24 hrs: Laboratory Results - last 24 hr 03/18/18 03/18/18 03/18/18 Range/Units 11:18 17:02 20:22 POC Glucose 106 H 110 H 123 H (70-105) mg/dl 03/19/18 Range/Units 07:36 POC Glucose 81 (70-105) mg/dl [facility] Results - Last 24 hrs: Microbiology 03/14/18 20:22 Aerobic Blood Culture - Preliminary Blood NO GROWTH AFTER 4 DAYS Anaerobic Blood Culture - Preliminary NO GROWTH AFTER 4 DAYS Med Orders - Current: Current Medications Acetaminophen (Tylenol) 650 mg PO Q4H PRN PRN Reason: Pain (Mild 1-3)/fever Albuterol/Ipratropium (Duoneb 3.0-0.5 Mg/3 Ml) 3 ml NEB Q4HRRT PRN PRN Reason: SOB, wheezing Aspirin (Aspirin) 81 mg PO BEDTIME [facility] Last Admin: 03/18/18 20:44 Dose: 81 mg Atorvastatin Calcium (Lipitor) 10 mg PO BEDTIME [facility] Last Admin: 03/18/18 20:44 Dose: 10 mg Ceftriaxone Sodium (Rocephin) 1 gm IVPUSH Q24H [facility] Last Admin: 03/18/18 22:50 Dose: 1 gm Divalproex Sodium (Depakote Er) 1,500 mg PO BEDTIME [facility] Last Admin: 03/18/18 20:42 Dose: 1,500 mg Docusate Sodium (Colace) 100 mg PO BID PRN PRN Reason: Constipation Last Admin: 03/15/18 21:20 Dose: 100 mg Famotidine (Pepcid) 20 mg PO DAILY PRN PRN Reason: Heartburn Last Admin: 03/14/18 23:16 Dose: 20 mg Guaifenesin/Phenylephrine HCl (Robitussin Dm) 10 ml PO Q6H PRN PRN Reason: Cough Last Admin: 03/16/18 23:09 Dose: 10 ml Heparin Sodium (Porcine) (Heparin Sodium) 5,000 units SUBCUT Q8H [facility] Last Admin: 03/19/18 05:37 Dose: 5,000 units Azithromycin 500 mg/ Sodium (Chloride) 250 mls @ 250 mls/hr IV Q24H [facility] Last Infusion: 03/19/18 00:11 Dose: Infused Piperacillin Sod/Tazobactam (Sod 3.375 gm/ Sodium Chloride) 100 mls @ 200 mls/ hr IV Q6H [facility] Last Infusion: 03/19/18 06:21 Dose: Infused Ibuprofen (Motrin) 800 mg PO Q6H PRN PRN Reason: Pain, fever Last Admin: 03/18/18 22:49 Dose: 800 mg Insulin Aspart (Novolog) 0 unit SUBCUT ACBED [facility]; Protocol Last Admin: 03/19/18 07:44 Dose: Not Given Ondansetron HCl (Zofran Odt) 4 mg PO Q4H PRN PRN Reason: nausea, able to take PO Sodium Chloride (Saline Flush) 10 ml FLUSH ASDIRECTED PRN PRN Reason: Keep Vein Open Last Admin: 03/18/18 17:45 Dose: 10 ml Zolpidem Tartrate (Ambien) 5 mg PO BEDTIME PRN PRN Reason: Sleep Last Admin: 03/17/18 03:09 Dose: 5 mg Discontinued Medications Albuterol/Ipratropium (Duoneb 3.0-0.5 Mg/3 Ml) 3 ml NEB ONETIME ONE Stop: 03/14/18 20:38 Last Admin: 03/14/18 20:41 Dose: 3 ml Albuterol/Ipratropium (Duoneb 3.0-0.5 Mg/3 Ml) 3 ml NEB Q4HRRT PRN PRN Reason: sob Last Admin: 03/14/18 23:19 Dose: 3 ml Albuterol/Ipratropium (Duoneb 3.0-0.5 Mg/3 Ml) 3 ml NEB BIDRT [facility] Last Admin: 03/18/18 17:28 Dose: Not Given Azithromycin (Zithromax) Confirm Administered Dose 500 mg .ROUTE .STK-MED ONE Stop: 03/14/18 22:59 Last Admin: 03/14/18 23:24 Dose: Not Given Heparin Sodium (Porcine) (Heparin Sodium) 5,000 units SUBCUT Q8H [facility] Piperacillin Sod/Tazobactam Sod (Zosyn) Confirm Administered Dose 3.375 gm .ROUTE .STK-MED ONE Stop: 03/18/18 17:18 Last Admin: 03/18/18 17:40 Dose: Not Given Potassium Chloride (Klor-Con 10) 40 meq PO BIDMEALS [facility] Stop: 03/15/18 18:01 Last Admin: 03/15/18 17:13 Dose: 40 meq - Exam Quality Assessment: Reports: DVT Prophylaxis. Denies: Supplemental Oxygen General: Reports: Alert, Oriented, Cooperative, No Acute Distress HEENT: Reports: Pupils Equal, EOMI, Mucous Membr. Moist/[place] Neck: Reports: Supple, No JVD, No Thyromegaly Lungs: Reports: Clear to Auscultation, Normal Respiratory Effort. Denies: Crackles, Wheezing Cardiovascular: Reports: Regular Rate, Regular Rhythm, Murmurs GI/Abdominal Exam: Normal Bowel Sounds, Soft, Non-Tender, No Organomegaly (Female) Exam: Deferred Rectal (Female) Exam: Deferred Back Exam: Reports: Normal Inspection, Full Range of Motion Extremities: Normal Inspection, No Pedal Edema Skin: Reports: Warm, Dry, Intact Neurological: Reports: No New Focal Deficit Psy/Mental Status: Reports: Alert, Normal Affect, Normal Mood
[2018-03-19 11:28] VITALS: BP 134/52
== END 2018-03-19 12:09 | disposition home or self-care (01) | DRG 195 ==
LOC: DL.ED 20:01 → DL.MS 21:56 → UNDOADMIN 21:56 → DL.MS 22:57
PROVIDERS: ADMIT Internal Medicine; ATTEND Internal Medicine
DX: J18.1 Lobar pneumonia, unspecified organism (principal); E11.40 Type 2 diabetes mellitus with diabetic neuropathy, unspecified; G47.33 Obstructive sleep apnea (adult) (pediatric); I10 Essential (primary) hypertension; K21.9 Gastro-esophageal reflux disease without esophagitis; E78.00 Pure hypercholesterolemia, unspecified; Z99.89 Dependence on other enabling machines and devices; Z79.84 Long term (current) use of oral hypoglycemic drugs; Z79.899 Other long term (current) drug therapy; Z79.82 Long term (current) use of aspirin; Z79.2 Long term (current) use of antibiotics
CPT/HCPCS: 36415; 71046; 80048; 80053; 82962; 83605; 85025; 87040; 94640; 99285; A9270-GY; J0456; J0696; J1644; J1815-GY; J2543; J7050; J7620-GY

== ENCOUNTER 2021-03-31 15:22 | Emergency (ER) | payer MEDICARE ==
[2021-03-31 15:51] VITALS: BP 182/83; PULSE 73
[2021-03-31 16:13] LABS: ANION GAP 14.3 mEq/L (7-13)
--- NOTE | 2021-03-31 16:20 | EDM.PDOC ---
ED HPI GENERAL MEDICAL PROBLEM - General Chief Complaint: Abdominal Pain Stated Complaint: ABD PAIN, VOMITING Time Seen by Provider: 03/31/21 15:54 Source of Information: Reports: Patient History Limitations: Reports: No Limitations - History of Present Illness INITIAL COMMENTS - FREE TEXT/NARRATIVE: This 61 yo female patient was sent to the ED from the [facility]. The patient reports she went to the clinic due to blood in her urine and bilateral flank pain. The patient reports she saw the clinic provider very briefly before being sent to the ED. The provider reports the patient was nauseated, vomiting, had blood in her urine and was shaking while in the Clinic. The patient reports she was nauseated due to the pain and has chronic tremors that get worse when she is stressed. The patient reports she is feeling better at this time, but continues to have bilateral flank pain. Onset: Today Duration: Constant Location: Reports: Abdomen, Back Quality: Reports: Ache, Dull Severity: Moderate Improves with: Reports: None Worsens with: Reports: None Context: Reports: Other Associated Symptoms: Reports: Nausea/Vomiting Lower Abdomen Pain Score (Numeric/FACES): 10 - Related Data Allergies Allergy/AdvReac Type Severity Reaction Status Date / Time No Known Allergies Allergy Verified 03/31/21 15:51 Home Meds: Home Meds RX: Divalproex Sodium [Divalproex Sodium ER] 1,500 mg PO BEDTIME 07/14/14 [History] RX: metFORMIN HCl [Metformin ER Osmotic] 1,000 mg PO BID 07/14/14 [History] RX: Aspirin 81 mg PO BEDTIME 11/20/15 [History] RX: Famotidine [Pepcid] 20 mg PO DAILY PRN 11/20/15 [History] RX: Ibuprofen [Motrin] 800 mg PO Q6H PRN 11/20/15 [History] RX: atorvaSTATin [Lipitor] 10 mg PO BEDTIME 11/20/15 [History] Amoxicillin/Potassium Clav [Augmentin 875-125 Tablet] 1 each PO BID #14 tablet 03/19/18 [Rx] Dicyclomine [Bentyl] 10 mg PO QIDACANDBED 03/31/21 [History] Losartan [Cozaar] 50 mg PO DAILY 03/31/21 [History] Past Medical History HEENT History: Reports: Impaired Vision Other HEENT History: wears glasses Cardiovascular History: Reports: High Cholesterol, Hypertension Respiratory History: Reports: None Gastrointestinal History: Reports: Cholelithiasis, GERD Genitourinary History: Reports: Renal Calculus [employer] History: Reports: None Musculoskeletal History: Reports: Other (See Below) Other Musculoskeletal History: elbow surgery Neurological History: Reports: Neuropathy, Diabetic Other Neuro History: benign brain tumor Psychiatric History: Reports: None Endocrine/Metabolic History: Reports: Diabetes, Type II, Obesity/BMI 30+ Hematologic History: Reports: None Immunologic History: Reports: None Oncologic (Cancer) History: Reports: None Dermatologic History: Reports: None - Infectious Disease History Infectious Disease History: Reports: Chicken Pox, Measles - Past Surgical History GI Surgical History: Reports: Cholecystectomy Female Surgical History: Reports: Hysterectomy Social & Family History - Family History Family Medical History: No Pertinent Family History - Tobacco Use Tobacco Use Status *Q: Never Tobacco User - Caffeine Use Caffeine Use: Reports: Coffee - Recreational Drug Use Recreational Drug Use: No - Living Situation & Occupation Living situation: Reports: with Family ED ROS GENERAL - Review of Systems Review Of Systems: Comprehensive ROS is negative, except as noted in HPI. ED EXAM, GENERAL - Physical Exam Exam: See Below Exam Limited By: No Limitations General Appearance: Alert, WD/WN, Mild Distress Eye Exam: Bilateral Eye: EOMI, Normal Inspection, PERRL Ears: Normal External Exam, Normal Canal, Hearing Grossly Normal, Normal TMs Nose: Normal Inspection, Normal Mucosa, No Blood Throat/Mouth: Normal Inspection, Normal Lips, Normal Teeth, Normal Gums, Normal Oropharynx, Normal Voice, No Airway Compromise Head: Atraumatic, Normocephalic Neck: Normal Inspection, Supple, Non-Tender, Full Range of Motion Respiratory/Chest: No Respiratory Distress, Lungs Clear, Normal Breath Sounds, No Accessory Muscle Use, Chest Non-Tender Cardiovascular: Normal Peripheral Pulses, Regular Rate, Rhythm, No Edema, No Gallop, No JVD, No Murmur, No Rub GI/Abdominal: Normal Bowel Sounds (Female) Exam: Deferred Rectal (Female) Exam: Deferred Back Exam: Normal Inspection, Full Range of Motion, NT Extremities: Normal Inspection, Normal Range of Motion, Non-Tender, Normal Capillary Refill, No Pedal Edema Neurological: Alert, Oriented, CN II-XII Intact, Normal Cognition, Normal Gait, Normal Reflexes, No Motor/Sensory Deficits Psychiatric: Normal Affect, Normal Mood Skin Exam: Warm, Dry, Intact, Normal Color, No Rash Lymphatic: No Adenopathy #1 Interpretation EKG Date: 03/31/21 Time: 16:06 Rhythm: NSR Rate (Beats/Min): 74 [place]: Normal P-Wave: Present ST-T: Normal QT: Normal Comparison: NA - No Prior EKG Course - Vital Signs Last Recorded V/S: Last Vital Signs Temp 97.5 F 03/31/21 15:36 Pulse 73 03/31/21 15:36 Resp 20 03/31/21 15:36 BP 182/83 H 03/31/21 15:36 Pulse Ox 93 L 03/31/21 15:36 - Orders/Labs/Meds Orders: Active Orders 24 hr Category Date Time Status CULTURE BLOOD [BC] Stat Lab 03/31/21 15:45 Received REFLEX LACTIC ACID YES OR NO [CHEM] Routine Lab 03/31/21 16:21 Received Labs: Laboratory Tests 03/31/21 03/31/21 03/31/21 Range/Units 15:28 15:40 15:45 WBC 10.5 H (5.0-10.0) 10^3/uL RBC 4.25 (4.2-5.4) 10^6/uL Hgb 14.1 D (12.0-16.0) g/dL Hct 42.7 (37.0-47.0) % MCV 100.5 H (80-100) fL MCH 33.2 (27.0-34.0) pg MCHC 33.0 (33.0-35.0) g/dL Plt Count 175 (150-450) 10^3/uL Neut % (Auto) 70.4 (42.2-75.2) % Lymph % (Auto) 21.3 (20.5-50.1) % [place] % (Auto) 7.6 (2-8) % Eos % (Auto) 0.4 L (1.0-3.0) % Baso % (Auto) 0.3 (0.0-1.0) % D-Dimer, Quantitative (0-400) ng/mL Sodium (136-145) mmol/L Potassium (3.5-5.1) mmol/L Chloride (98-107) mmol/L Carbon Dioxide (21-32) mmol/L Anion Gap (7-13) mEq/L BUN (7-18) mg/dL Creatinine (0.55-1.02) mg/dL Est Cr Clr Drug Dosing mL/min Estimated GFR (MDRD) BUN/Creatinine Ratio (No establ ref range) Glucose (70-99) mg/dL Lactic Acid (0.4-2.0) mmol/L Calcium (8.5-10.1) mg/dL Total Bilirubin (0.2-1.0) mg/dL AST (15-37) U/L ALT (14-59) U/L Alkaline Phosphatase (46-116) U/L Troponin I High Sens (<=51) pg/mL Total Protein (6.4-8.2) g/dL Albumin (3.4-5.0) g/dL Globulin Albumin/Globulin Ratio Urine Color Red (YELLOW) Urine Appearance Cloudy (CLEAR) Urine pH 6.0 (5.0-9.0) Ur Specific [place] >= 1.030 (1.005-1.030) Urine Protein 100 H (NEGATIVE) Urine Glucose (UA) Negative (NEGATIVE) Urine Ketones 15 H (NEGATIVE) Urine Occult Blood Large H (NEGATIVE) Urine Nitrite Negative (NEGATIVE) Urine Bilirubin Small H (NEGATIVE) Urine Urobilinogen 0.2 (0.2-1.0) mg/dL Ur Leukocyte Esterase Negative (NEGATIVE) Urine RBC >100 H (0-5) /HPF Urine WBC 5-10 H (0-5/HPF) /HPF Ur Epithelial Cells Moderate H (NOT SEEN) /HPF Calcium Oxalate Crystal Few H (NOT SEEN) /HPF Urine Bacteria Not seen (0-FEW/HPF) /HPF Urine Mucus Moderate H (NOT SEEN) /LPF Influenza Type A RNA Negative (NEGATIVE) Influenza Type B RNA Negative (NEGATIVE) SARS-CoV-2 RNA (CANDY) Negative (NEGATIVE) 03/31/21 03/31/21 03/31/21 Range/Units 15:45 15:45 15:45 WBC (5.0-10.0) 10^3/uL RBC (4.2-5.4) 10^6/uL Hgb (12.0-16.0) g/dL Hct (37.0-47.0) % MCV (80-100) fL MCH (27.0-34.0) pg MCHC (33.0-35.0) g/dL Plt Count (150-450) 10^3/uL Neut % (Auto) (42.2-75.2) % Lymph % (Auto) (20.5-50.1) % [place] % (Auto) (2-8) % Eos % (Auto) (1.0-3.0) % Baso % (Auto) (0.0-1.0) % D-Dimer, Quantitative 233 (0-400) ng/mL Sodium 143 (136-145) mmol/L Potassium 3.3 L (3.5-5.1) mmol/L Chloride 104 (98-107) mmol/L Carbon Dioxide 28 (21-32) mmol/L Anion Gap 14.3 H (7-13) mEq/L BUN 10 (7-18) mg/dL Creatinine 1.04 H (0.55-1.02) mg/dL Est Cr Clr Drug Dosing 45.80 mL/min Estimated GFR (MDRD) 54 BUN/Creatinine Ratio 9.6 (No establ ref range) Glucose 138 H (70-99) mg/dL Lactic Acid 2.8 H* (0.4-2.0) mmol/L Calcium 9.2 (8.5-10.1) mg/dL Total Bilirubin 0.5 (0.2-1.0) mg/dL AST 27 (15-37) U/L ALT 30 (14-59) U/L Alkaline Phosphatase 92 (46-116) U/L Troponin I High Sens 6 (<=51) pg/mL Total Protein 7.5 (6.4-8.2) g/dL Albumin 3.4 (3.4-5.0) g/dL Globulin 4.1 Albumin/Globulin Ratio 0.8 Urine Color (YELLOW) Urine Appearance (CLEAR) Urine pH (5.0-9.0) Ur Specific [place] (1.005-1.030) Urine Protein (NEGATIVE) Urine Glucose (UA) (NEGATIVE) Urine Ketones (NEGATIVE) Urine Occult Blood (NEGATIVE) Urine Nitrite (NEGATIVE) Urine Bilirubin (NEGATIVE) Urine Urobilinogen (0.2-1.0) mg/dL Ur Leukocyte Esterase (NEGATIVE) Urine RBC (0-5) /HPF Urine WBC (0-5/HPF) /HPF Ur Epithelial Cells (NOT SEEN) /HPF Calcium Oxalate Crystal (NOT SEEN) /HPF Urine Bacteria (0-FEW/HPF) /HPF Urine Mucus (NOT SEEN) /LPF Influenza Type A RNA (NEGATIVE) Influenza Type B RNA (NEGATIVE) SARS-CoV-2 RNA (CANDY) (NEGATIVE) Meds: Medications Discontinued Medications Generic Name Dose Route Start Last Admin Trade Name Anjali PRN Reason Stop Dose Admin Ketorolac Tromethamine 30 mg 03/31/21 18:17 Ketorolac 30 Mg/Ml Sdv IVPUSH 03/31/21 18:18 ONETIME ONE Tamsulosin HCl 0.4 mg 03/31/21 18:17 Tamsulosin 0.4 Mg Cap.Er PO 03/31/21 18:18 ONETIME ONE Departure - Departure Time of Disposition: 18:20 Disposition: Home, Self-Care 01 Condition: Fair Clinical Impression: Kidney stone on right side - Discharge Information *PRESCRIPTION DRUG MONITORING PROGRAM REVIEWED*: Not Applicable *COPY OF PRESCRIPTION DRUG MONITORING REPORT IN PATIENT EDI: Not Applicable Instructions: Kidney Stones, [id number] Forms: ED Department Discharge Care Plan Goals: The patient was advised of the examination, lab and CT results during the visit. The patient was given IV Toradol and an oral dose of Flomax while in the ED. The patient was discharged with a script for Toradol (10 mg) #20 to take 1 by mouth every 6 hours as needed and Flomax (0.4 mg) #5 to take 1 by mouth daily for 5 days. The patient was also encouraged to increase her oral fluid intake. If the patient has any additional symptoms or concerns, the patient should either return to the emergency department or visit her primary care facility. Sepsis Event Note (ED) - Evaluation Sepsis Screening Result: No Definite Risk - Focused Exam Vital Signs: Vital Signs Temp Pulse Resp BP Pulse Ox 03/31/21 15:36 97.5 F 73 20 182/83 H 93 L - My Orders Last 24 Hours: My Active Orders 03/31/21 15:45 CULTURE BLOOD [BC] Stat 03/31/21 16:21 REFLEX LACTIC ACID YES OR NO [CHEM] Routine - Assessment/Plan Last 24 Hours: My Active Orders 03/31/21 15:45 CULTURE BLOOD [BC] Stat 03/31/21 16:21 REFLEX LACTIC ACID YES OR NO [CHEM] Routine
[2021-03-31 16:33] LABS: CORONAVIRUS COVID-19 NAA NEGATIVE (NEGATIVE)
--- NOTE | 2021-03-31 18:06 | CT ---
PROCEDURE INFORMATION: Exam: CT Abdomen And Pelvis Without Contrast Exam date and time: 03/31/2021 5:22 PM Age: 61 years old Clinical indication: Abdominal pain; Other: Bilateral flank pain; Prior surgery; Surgery date: 6+ months; Surgery type: Partial hysterectomy, cholecystectomy; Patient HX: HX kidney stones; Additional info: Hematuria TECHNIQUE: Imaging protocol: Computed tomography of the abdomen and pelvis without contrast. Total images: 401 Radiation optimization: All CT scans at this facility use at least one of these dose optimization techniques: automated exposure control; mA and/or kV adjustment per patient size (includes targeted exams where dose is matched to clinical indication); or iterative reconstruction. COMPARISON: CT Abdomen Pelvis wo Cont 04/02/2017 4:55 PM FINDINGS: Lungs: Bandlike atelectasis or scarring in the lung bases, slightly increased from 04/02/2017. Heart: Mild cardiomegaly. Mediastinal space: The visualized distal esophagus is largely contracted without gross abnormality. Liver: Normal contour. No mass lesions. No intrahepatic biliary ductal dilatation. Gallbladder and bile ducts: Prior cholecystectomy with no significant dilatation of the common bile duct. Pancreas: Mild pancreatic atrophy without acute abnormality. No pancreatic ductal dilatation. Spleen: Normal. No splenomegaly. Adrenal glands: Normal. No adrenal mass. Kidneys and ureters: Mild-moderate right hydronephrosis and hydroureter with a 3 mm right UVJ stone on series 2, image 139. 7 mm chronic cortical calcification in the posterior upper pole cortex of the right kidney. Chronic mild left caliectasis without ureterectasis. No left-sided urolithiasis. Moderate right and mild left perinephric stranding. Stomach and bowel: The stomach is largely contracted without gross abnormality. The small bowel is nondilated with no gross abnormality. No acute colonic abnormalities. The colon is largely contracted. Appendix: The appendix is normal in caliber and demonstrates no evidence of appendicitis. Intraperitoneal space: No free fluid or air. Vasculature: Moderate atherosclerotic aortoiliac calcification without aneurysm. Lymph nodes: No adenopathy. Urinary bladder: The bladder is otherwise unremarkable. Reproductive: Prior hysterectomy. Bones/joints: No acute osseous abnormalities. Soft tissues: Unremarkable. IMPRESSION: 1. There is a 3 mm right UVJ stone with mild-moderate right hydronephrosis and hydroureter. 2. Additional nonemergent findings detailed above.
[2021-03-31] MEDS ORDERED: Ketorolac 30 MG/ML SDV IVPUSH ONE (18:17)
[2021-03-31] MEDS ORDERED: Tamsulosin 0.4 MG Cap.ER PO ONE (18:17)
== END 2021-03-31 18:45 | disposition home or self-care (01) ==
LOC: DL.ED 15:22
DX: N13.2 Hydronephrosis with renal and ureteral calculous obstruction (principal); E78.00 Pure hypercholesterolemia, unspecified; I10 Essential (primary) hypertension; E11.9 Type 2 diabetes mellitus without complications; E66.9 Obesity, unspecified; Z68.41 Body mass index [BMI] 40.0-44.9, adult; Z79.82 Long term (current) use of aspirin; Z79.84 Long term (current) use of oral hypoglycemic drugs; Z20.822 Contact with and (suspected) exposure to COVID-19
CPT/HCPCS: 0240U; 36415; 74176; 80053; 81001; 83605; 84484; 85025; 85379; 87040; 93005; 96374; 99284; A9270; J1885

== ENCOUNTER 2021-06-30 06:28 | Day surgery (SDC) | payer MEDICARE, MEDICAID ==
[~2021-06-30 06:28] MED LIST: Proparacaine 0.5% Ophth Soln 15 ML Bottle ONE
[2021-06-30] MEDS ORDERED: Sodium Chloride 0.9% 10 ML Syringe IV ONE (06:29)
[2021-06-30] MEDS ORDERED: Midazolam 1 MG/ML 2 ML SDV IV ONE (06:29)
[2021-06-30] MEDS ORDERED: Dexamethasone 4 MG/ML SDV IV ONE (06:29)
[2021-06-30] MEDS ORDERED: Povidone-Iodine 5% Sterile Ophth Soln 30 ML Bottle EYELF ONE ×2 (06:30→08:07)
[2021-06-30] MEDS ORDERED: Proparacaine 0.5% Ophth Soln 15 ML Bottle EYELF ONE (06:30)
[2021-06-30] MEDS ORDERED: Tropicamide 1% Ophth Soln 15 ML Bottle EYELF ONE (06:30)
[2021-06-30] MEDS ORDERED: Ondansetron 4 MG/2 ML SDV IVPUSH PRN (06:30)
[2021-06-30] MEDS ORDERED: Sodium Chloride 0.9% 10 ML Syringe FLUSH PRN (06:30)
[2021-06-30] MEDS ORDERED: Timolol Maleate 0.5% Ophth Soln 5 ML Bottle EYELF ONE (06:30)
[2021-06-30] MEDS ORDERED: Moxifloxacin 0.5% Ophth Soln 3 ML Bottle EYELF ONE (06:30)
[2021-06-30] MEDS ORDERED: Tobramycin 0.3% Ophth Drops 5 ML Bottle EYELF ONE (06:30)
[2021-06-30] MEDS ORDERED: Acetaminophen 325 MG Tab PO PRN (06:30)
[2021-06-30] MEDS ORDERED: Acetaminophen/Codeine 300-30 MG Tab PO PRN (06:30)
[2021-06-30] MEDS ORDERED: Cataract Ophth Solution EYELF ONE (06:30)
[2021-06-30] MEDS ORDERED: Phenylephrine 10% Ophth Soln 5 ML Bot EYELF PRN (06:30)
[2021-06-30] MEDS ORDERED: Tetracaine HCl/PF 0.5% 4 ML Bottle EYELF ONE (08:07)
[2021-06-30] MEDS ORDERED: Apraclonidine 0.5% Ophth Soln 5 ML Bot EYELF ONE (08:08)
[2021-06-30] MEDS ORDERED: Diclofenac Sodium 0.1% Ophth Soln 5 ML Bottle EYELF ONE (08:08)
[2021-06-30] MEDS ORDERED: Chondroitin Sulfate/Hyaluronate Sodium Ophth Inj 0.75 ML Syringe EYELF ONE (08:09)
[2021-06-30] MEDS ORDERED: Lidocaine 1% 30 ML SDV ONE (08:09)
[2021-06-30] MEDS ORDERED: Dexamethasone/Neomycin/Polymyxin B Ophth Oint 3.5 GM Tube EYELF ONE (08:09)
[2021-06-30] MEDS ORDERED: Balanced Salt Solution Ophth Irrig 500 ML Bottle IOCULAR ONE (08:11)
[2021-06-30] MEDS ORDERED: Vancomycin 500 MG SDV EYELF ONE (08:11)
[2021-06-30 12:17] VITALS: BP 122/60; PULSE 59
--- NOTE | 2021-06-30 14:48 | OR ---
DATE: 06/30/2021 PREOPERATIVE DIAGNOSIS: Visually significant mixed cataract, left eye. POSTOPERATIVE DIAGNOSIS: Visually significant mixed cataract, left eye. PROCEDURE: Extracapsular cataract extraction with intraocular lens implant, left eye. ANESTHESIA: Topical/local MAC. COMPLICATIONS: None. INDICATION: Ms. Payne was seen in the clinic. She complains of blurred vision, difficulty seeing television, difficulty seeing small print, difficulty reading, difficulty seeing newspapers. Her examination revealed visually significant mixed cataract. I explained options, offered cataract surgery and I explained risks including the potential for infection, retinal detachment, loss of vision, need for additional surgery, and risks associated with anesthesia. We have discussed implant options. She has requested a multifocal implant. I did explain the increased potential for glare halo and dysphotopsia. Also explained that she may still require glasses for some activities. She is unhappy with her vision, symptomatic and motivated to proceed. She voiced understanding with respect to risks and options and requested surgery. OPERATIVE DESCRIPTION: After informed consent was obtained and the risks, benefits, and alternatives were explained, the patient was brought to the operative suite and topical anesthesia was administered. The patient was then prepped and draped in the sterile fashion and attention was placed on the left eye. A sterile lid speculum was placed into the left eye to allow operative exposure. A full-thickness paracentesis was made in the temporal portion of the operative eye. Preservative-free lidocaine 0.1 mL was injected into the anterior chamber followed by viscoelastic. A full-thickness corneal incision was then made into the anterior chamber. A bent needle cystotome was used to create a small celi in the anterior capsule. The capsulorrhexis forceps was then used to create a 360-degree curvilinear capsulorrhexis. The nucleus was then removed using a phacoemulsification handpiece and the remaining cortical material was then removed with irrigation and aspiration handpiece. Following removal of the cortical material, the capsular bag was then inspected and noted to be free of any holes or tears. Viscoelastic was then injected into the capsular bag and the intraocular lens was inserted into the capsular bag. The implant was oriented to correspond with preoperative corneal real made with the patient in the upright position. The viscoelastic material was then removed from both the anterior and posterior chambers and from behind the IOL. The lens and capsular bag were then reinspected. The IOL was well centered and the capsular bag intact. The wound and paracentesis sites were inspected and hydrated with balanced saline solution. Both were found to be self-sealing. The intraocular pressure was assessed digitally and found to be within normal range. A good red reflex was noted at the completion of the procedure. No complications occurred during the operation. At the completion of the procedure, Maxitrol, Voltaren, and Iopidine drops were placed into the operative eye. A sterile eye shield was placed over the operative eye and the patient was transported to the postoperative recovery area having tolerated the procedure well. Postoperative instructions were given along with a postoperative appointment. The patient was advised to call with any questions or concerns. [facility] /[id number]
== END 2021-06-30 09:25 | disposition home or self-care (01) ==
LOC: DL.SDS 06:28
PROVIDERS: ATTEND Ophthalmology
DX: E11.36 Type 2 diabetes mellitus with diabetic cataract (principal); E11.00 Type 2 diabetes mellitus with hyperosmolarity without nonketotic hyperglycemic-hyperosmolar coma (NKHHC); G40.909 Epilepsy, unspecified, not intractable, without status epilepticus; H26.8 Other specified cataract; E53.8 Deficiency of other specified B group vitamins; I10 Essential (primary) hypertension; E87.6 Hypokalemia; G47.30 Sleep apnea, unspecified; Z98.890 Other specified postprocedural states; Z79.899 Other long term (current) drug therapy; Z79.84 Long term (current) use of oral hypoglycemic drugs
CPT/HCPCS: A9270-GY; J1100; J2250; J3370

== ENCOUNTER 2021-07-07 06:25 | Day surgery (SDC) | payer MEDICARE, MEDICAID ==
[2021-07-07] MEDS ORDERED: Dexamethasone 4 MG/ML SDV IV ONE (06:26)
[2021-07-07] MEDS ORDERED: Sodium Chloride 0.9% 10 ML Syringe IV ONE (06:26)
[2021-07-07] MEDS ORDERED: Midazolam 1 MG/ML 2 ML SDV IV ONE (06:26)
[2021-07-07] MEDS ORDERED: Ondansetron 4 MG/2 ML SDV IVPUSH PRN (06:30)
[2021-07-07] MEDS ORDERED: Acetaminophen 325 MG Tab PO PRN (06:30)
[2021-07-07] MEDS ORDERED: Tropicamide 1% Ophth Soln 15 ML Bottle EYERT ONE (06:30)
[2021-07-07] MEDS ORDERED: Moxifloxacin 0.5% Ophth Soln 3 ML Bottle EYERT ONE (06:30)
[2021-07-07] MEDS ORDERED: Timolol Maleate 0.5% Ophth Soln 5 ML Bottle EYERT ONE (06:30)
[2021-07-07] MEDS ORDERED: Tobramycin 0.3% Ophth Drops 5 ML Bottle EYERT ONE (06:30)
[2021-07-07] MEDS ORDERED: Proparacaine 0.5% Ophth Soln 15 ML Bottle EYERT ONE (06:30)
[2021-07-07] MEDS ORDERED: Phenylephrine 10% Ophth Soln 5 ML Bot EYERT PRN (06:30)
[2021-07-07] MEDS ORDERED: Cataract Ophth Solution EYERT ONE (06:30)
[2021-07-07] MEDS ORDERED: Povidone-Iodine 5% Sterile Ophth Soln 30 ML Bottle EYERT ONE ×2 (06:30→07:59)
[2021-07-07] MEDS ORDERED: Acetaminophen/Codeine 300-30 MG Tab PO PRN (06:30)
[2021-07-07] MEDS ORDERED: Tetracaine HCl/PF 0.5% 4 ML Bottle EYERT ONE (07:59)
[2021-07-07] MEDS ORDERED: Apraclonidine 0.5% Ophth Soln 5 ML Bot EYERT ONE (08:00)
[2021-07-07] MEDS ORDERED: Dexamethasone/Neomycin/Polymyxin B Ophth Oint 3.5 GM Tube EYERT ONE (08:00)
[2021-07-07] MEDS ORDERED: Balanced Salt Solution Ophth Irrig 500 ML Bottle IOCULAR ONE (08:00)
[2021-07-07] MEDS ORDERED: Diclofenac Sodium 0.1% Ophth Soln 5 ML Bottle EYERT ONE (08:00)
[2021-07-07] MEDS ORDERED: Lidocaine 1% 30 ML SDV ONE (08:01)
[2021-07-07] MEDS ORDERED: Vancomycin 500 MG SDV EYERT ONE (08:01)
[2021-07-07] MEDS ORDERED: Chondroitin Sulfate/Hyaluronate Sodium Ophth Inj 0.75 ML Syringe EYERT ONE (08:01)
[2021-07-07 10:23] VITALS: BP 124/57; PULSE 64
--- NOTE | 2021-07-07 11:24 | OR ---
DATE: 07/07/2021 PREOPERATIVE DIAGNOSIS: Visually significant mixed cataract, right eye. POSTOPERATIVE DIAGNOSIS: Visually significant mixed cataract, right eye. PROCEDURE: Extracapsular cataract extraction with intraocular lens implant, right eye. ANESTHESIA: Topical/local MAC. COMPLICATIONS: None. INDICATION: Ms. Payne was seen in the clinic. She is referred by Dr. Diez. She is unhappy with her vision noticing a slow progressive change. She has difficulty with multiple activities of daily living. She has difficulty seeing television, difficulty driving, difficulty seeing small print, difficulty reading, difficulty with bright lights and glare. She was unable to improve her vision with changing glasses. Examination revealed mixed cataract. Explained options, offered cataract surgery, and I explained risks, including, but not limited to, infection; retinal detachment; loss of vision; need for additional surgery; and risks associated with anesthesia. We have discussed implant options. She has requested a multifocal implant. I did explain the increased potential for glare halo and dysphotopsia. I also explained that she may still require glasses for some limited activities. She voiced understanding and wished to proceed. OPERATIVE DESCRIPTION: After informed consent was obtained and the risks, benefits, and alternatives were explained, the patient was brought to the operative suite and topical anesthesia was administered. The patient was then prepped and draped in the sterile fashion and attention was placed on the right eye. A sterile lid speculum was placed into the right eye to allow operative exposure. A full-thickness paracentesis was made in the temporal portion of the operative eye. Preservative-free lidocaine 0.1 mL was injected into the anterior chamber followed by viscoelastic. A full-thickness corneal incision was then made into the anterior chamber. A bent needle cystotome was used to create a small celi in the anterior capsule. The capsulorrhexis forceps was then used to create a 360-degree curvilinear capsulorrhexis. The nucleus was then removed using a phacoemulsification handpiece and the remaining cortical material was then removed with irrigation and aspiration handpiece. Following removal of the cortical material, the capsular bag was then inspected and noted to be free of any holes or tears. Viscoelastic was then injected into the capsular bag and the intraocular lens was inserted into the capsular bag. The implant was oriented to correspond with preoperative corneal real made with the patient in the upright position. The viscoelastic material was then removed from both the anterior and posterior chambers and from behind the IOL. The lens and capsular bag were then reinspected. The IOL was well centered and the capsular bag intact. The wound and paracentesis sites were inspected and hydrated with balanced saline solution. Both were found to be self-sealing. The intraocular pressure was assessed digitally and found to be within normal range. A good red reflex was noted at the completion of the procedure. No complications occurred during the operation. At the completion of the procedure, Maxitrol, Voltaren, and Iopidine drops were placed into the operative eye. A sterile eye shield was placed over the operative eye and the patient was transported to the postoperative recovery area having tolerated the procedure well. Postoperative instructions were given along with a postoperative appointment. The patient was advised to call with any questions or concerns. [facility] /[id number]
== END 2021-07-07 09:15 | disposition home or self-care (01) ==
LOC: DL.SDS 06:25
PROVIDERS: ATTEND Ophthalmology
DX: E11.36 Type 2 diabetes mellitus with diabetic cataract (principal); H26.8 Other specified cataract; G47.30 Sleep apnea, unspecified; E11.00 Type 2 diabetes mellitus with hyperosmolarity without nonketotic hyperglycemic-hyperosmolar coma (NKHHC); E53.8 Deficiency of other specified B group vitamins; I10 Essential (primary) hypertension; Z98.890 Other specified postprocedural states; Z79.899 Other long term (current) drug therapy; Z79.82 Long term (current) use of aspirin; E87.6 Hypokalemia
CPT/HCPCS: 00142; 82947; A9270-GY; J1100; J2250; J3370

== ENCOUNTER 2024-01-01 09:42 | Inpatient (IN) | payer MEDICAID, MEDICARE ==
[2024-01-01] MEDS: Famotidine 20 MG/2 ML SDV IVPUSH ONE (10:10)
[2024-01-01] MEDS: Ondansetron 4 MG/2 ML SDV IVPUSH ONE (10:10)
[2024-01-01] MEDS: Sodium Chloride 0.9% 1,000 ML IV ONE ×2 (10:10→12:09)
[2024-01-01 10:15] LABS: HEMATOCRIT 39.9 % (37.0-47.0); HEMOGLOBIN 13.9 g/dL (12.0-16.0); MEAN CORPUSCULAR HEMOGLOBIN 35.9 pg (27.0-34.0); MEAN CORPUSCULAR HGB CONC 34.8 g/dL (33.0-35.0); MEAN CORPUSCULAR VOLUME 103.1 fL (80-100); PLATELET COUNT,PLT 123 10^3/uL (150-450); RED BLOOD CELL COUNT 3.87 10^6/uL (4.2-5.4); WHITE BLOOD CELL COUNT,WBC 7.8 10^3/uL (5.0-10.0)
[2024-01-01 10:19] LABS: BASOPHILS PERCENT AUTO 0.3 % (0.0-1.0); EOSINOPHILS PERCENT AUTO 0.9 % (1.0-3.0); LYMPHOCYTES PERCENT AUTO 69.3 % (20.5-50.1); MONOCYTES PERCENT AUTO 7.6 % (2-8); NEUTROPHILS PERCENT AUTO 21.9 % (42.2-75.2)
[2024-01-01 10:28] LABS: A/G RATIO 0.9; ALANINE AMINOTRANSFERASE,ALT 21 U/L (14-59); ALBUMIN 3.5 g/dL (3.4-5.0); ALKALINE PHOSPHATASE 60 U/L (46-116); ASPARTATE AMNIOTRANSFERASE,AST 25 U/L (15-37); BILIRUBIN TOTAL 0.5 mg/dL (0.2-1.0); BLOOD UREA NITROGEN,BUN 21 mg/dL (7-18); BUN/CREATININE RATIO 13.8 (No establ ref range); C-REACTIVE PROTEIN < 0.50 ng/dL (<=0.50); CALCIUM 10.5 mg/dL (8.5-10.1); CARBON DIOXIDE,CO2 24 mmol/L (21-32); CHLORIDE,CL 109 mmol/L (98-107); CREATININE 1.52 mg/dL (0.55-1.02); EST CRCL DRUG DOSING (CG) 30.52 mL/min; ESTIMATED GFR 38 mL/min (>=60); GLUCOSE RANDOM 98 mg/dL (70-99); LACTIC ACID 1.9 mmol/L (0.4-2.0); LIPASE 67 U/L (16-77); MAGNESIUM 1.8 mg/dL (1.8-2.4); PROTEIN TOTAL,TP 7.2 g/dL (6.4-8.2); SODIUM,NA 146 mmol/L (136-145)
[2024-01-01] MEDS: Iopamidol 612 MG/ML 100 ML Bottle IVPUSH ONE (11:03)
[2024-01-01 11:55] LABS: LYMPHOCYTES PERCENT MAN 74 % (20-50); SEG NEUTROPHILS PERCENT MAN 18 % (42-75)
[2024-01-01 11:56] LABS: MONOCYTES PERCENT MAN 8 % (2-8)
[2024-01-01 12:06] LABS: BILIRUBIN,URINE SMALL (NEGATIVE); COLOR,URINE DARK YELLOW (YELLOW); GLUCOSE,URINE NEGATIVE (NEGATIVE); KETONES,URINE TRACE (NEGATIVE); LEUKOCYTE ESTERASE,URINE SMALL (NEGATIVE); NITRITE,URINE NEGATIVE (NEGATIVE); OCCULT BLOOD,URINE NEGATIVE (NEGATIVE); PROTEIN,URINE TRACE (NEGATIVE); UROBILINOGEN,URINE 0.2 mg/dL (0.2-1.0)
[2024-01-01 12:07] LABS: APPEARANCE,URINE SLIGHTLY CLOUDY (CLEAR)
[2024-01-01] MEDS: Bisacodyl 10 MG Supp RECTAL ONE (12:09)
[2024-01-01] MEDS: cefTRIAXone 1 GM Vial IVPUSH ONE (12:27)
[2024-01-01 12:31] LABS: WBC,URINE 20-30 /HPF (0-5/HPF)
[2024-01-01 12:32] LABS: BACTERIA,URINE FEW /HPF (0-FEW/HPF); HYALINE CASTS,URINE FEW; MUCUS,URINE MANY /LPF (NOT SEEN); RBC,URINE NOT SEEN /HPF (0-5)
[2024-01-01 12:33] LABS: AMORPHOUS SEDIMENT,URINE FEW /HPF (NOT SEEN); EPITHELIAL CELLS,URINE FEW /HPF (NOT SEEN)
[2024-01-01] MEDS ORDERED: HYDROmorphone 0.5 MG/0.5 ML Syringe IVPUSH PRN (14:17)
[2024-01-01] MEDS ORDERED: Melatonin 3 MG Tab PO PRN (14:19)
[2024-01-01] MEDS ORDERED: Albuterol/Ipratropium 3.0-0.5 MG/3 ML Neb Soln NEB PRN (14:19)
[2024-01-01] MEDS ORDERED: Ondansetron 4 MG/2 ML SDV IVPUSH PRN (14:19)
[2024-01-01] MEDS ORDERED: Naloxone 2 MG/2 ML Syringe IVPUSH PRN (14:19)
[2024-01-01] MEDS ORDERED: Dicyclomine 10 MG Cap PO PRN (14:28)
[2024-01-01] MEDS ORDERED: ZONISAMIDE 100 MG PO SCH (14:30)
[2024-01-01] MEDS: Lactulose Soln 10 GM/15 ML 30 ML UD Cup PO ONE (14:57)
[2024-01-01] MEDS: Sodium Chloride 0.9% 1,000 ML IV SCH (15:02)
[2024-01-01] MEDS: Ampicillin/Sulbactam Na 1.5 GM in Sodium Chloride 0.9% 100 ML IV SCH (17:43)
[2024-01-01] MEDS: atorvaSTATin 20 MG Tab PO SCH (21:48)
[2024-01-01] MEDS: Divalproex Sodium Delayed-Release 250 MG Tab.CR PO SCH (21:49)
[2024-01-01] MEDS: Multivitamin Tab PO SCH (21:50)
[2024-01-01] MEDS: Saccharomyces Boulardii (Probiotic) 250 MG Cap PO SCH (21:50)
[2024-01-01] MEDS: Aspirin 81 MG Tab.Chew PO SCH (21:51)
[2024-01-01] MEDS: ZONISAMIDE 200 MG PO ONE (22:32)
[2024-01-02] MEDS: Levothyroxine 75 MCG Tab PO SCH (06:03)
[2024-01-02 06:32] LABS: HEMOGLOBIN 10.8 g/dL (12.0-16.0); MEAN CORPUSCULAR HGB CONC 32.7 g/dL (33.0-35.0); MEAN CORPUSCULAR VOLUME 106.8 fL (80-100); PLATELET COUNT,PLT 83 10^3/uL (150-450); RED BLOOD CELL COUNT 3.09 10^6/uL (4.2-5.4); WHITE BLOOD CELL COUNT,WBC 4.9 10^3/uL (5.0-10.0)
[2024-01-02 07:09] LABS: ALBUMIN 2.4 g/dL (3.4-5.0); ANION GAP 14.7 mEq/L (7-13); BILIRUBIN TOTAL 0.2 mg/dL (0.2-1.0); BUN/CREATININE RATIO 12.3 (No establ ref range); CALCIUM 8.7 mg/dL (8.5-10.1); CREATININE 1.06 mg/dL (0.55-1.02); EST CRCL DRUG DOSING (CG) 41.85 mL/min; MAGNESIUM 1.6 mg/dL (1.8-2.4); POTASSIUM,K 3.7 mmol/L (3.5-5.1); PROTEIN TOTAL,TP 5.2 g/dL (6.4-8.2)
[2024-01-02 07:24] LABS: A/G RATIO 0.86
[2024-01-02 07:36] LABS: BASOPHILS PERCENT AUTO 0.2 % (0.0-1.0); EOSINOPHILS PERCENT AUTO 1.4 % (1.0-3.0); LYMPHOCYTES PERCENT AUTO 64.7 % (20.5-50.1); MONOCYTES PERCENT AUTO 7.8 % (2-8); NEUTROPHILS PERCENT AUTO 25.9 % (42.2-75.2)
[2024-01-02 08:28] LABS: EOSINOPHILS PERCENT MAN 2 % (1-3); LYMPHOCYTES PERCENT MAN 61 % (20-50); MONOCYTES PERCENT MAN 8 % (2-8); SEG NEUTROPHILS PERCENT MAN 29 % (42-75)
[2024-01-02] MEDS: ZONISAMIDE 200 MG PO SCH (09:07)
[2024-01-02] MEDS: Omeprazole 20 MG Cap.CR PO SCH (09:07)
[2024-01-02] MEDS: Lactulose Soln 10 GM/15 ML 30 ML UD Cup PO PRN (09:54)
[2024-01-02] MEDS: Calcium Carbonate 500 MG Tab.Chew PO SCH (12:16)
[2024-01-02] MEDS: Lactulose Soln 10 GM/15 ML 30 ML UD Cup PO ONE (13:39)
[2024-01-02] MEDS: Bisacodyl 10 MG Supp RECTAL PRN (13:40)
[2024-01-02] MEDS: Midodrine 5 MG Tab PO SCH (17:55)
[2024-01-02] MEDS: Metoclopramide 10 MG/2 ML SDV IVPUSH SCH (21:34)
[2024-01-02] MEDS: Benzocaine/Docusate Sodium 20-283 MG/5 ML Enema RECTAL SCH (21:34)
[2024-01-02] MEDS: Acetaminophen/HYDROcodone 325-5 MG Tab PO PRN (21:36)
[2024-01-02] MEDS: Witch Hazel Medicated Pads 100/Jar TOP PRN (22:44)
[2024-01-03 07:28] LABS: EOSINOPHILS PERCENT AUTO 1.9 % (1.0-3.0); HEMATOCRIT 31.4 % (37.0-47.0); HEMOGLOBIN 10.1 g/dL (12.0-16.0); LYMPHOCYTES PERCENT AUTO 66.5 % (20.5-50.1); MEAN CORPUSCULAR HEMOGLOBIN 34.7 pg (27.0-34.0); MEAN CORPUSCULAR HGB CONC 32.2 g/dL (33.0-35.0); MEAN CORPUSCULAR VOLUME 107.9 fL (80-100); MONOCYTES PERCENT AUTO 7.2 % (2-8); NEUTROPHILS PERCENT AUTO 24.2 % (42.2-75.2); PLATELET COUNT,PLT 73 10^3/uL (150-450); RED BLOOD CELL COUNT 2.91 10^6/uL (4.2-5.4); WHITE BLOOD CELL COUNT,WBC 4.7 10^3/uL (5.0-10.0)
[2024-01-03 07:29] LABS: BASOPHILS PERCENT AUTO 0.2 % (0.0-1.0)
[2024-01-03 07:59] LABS: A/G RATIO 0.85; ALBUMIN 2.2 g/dL (3.4-5.0); BILIRUBIN TOTAL 0.2 mg/dL (0.2-1.0); BUN/CREATININE RATIO 10.5 (No establ ref range); CALCIUM 8.9 mg/dL (8.5-10.1); CREATININE 1.05 mg/dL (0.55-1.02); EST CRCL DRUG DOSING (CG) 42.25 mL/min; MAGNESIUM 1.6 mg/dL (1.8-2.4); PROTEIN TOTAL,TP 4.8 g/dL (6.4-8.2)
[2024-01-03] MEDS: Lactated Ringers 1,000 ML IV ONE (08:10)
[2024-01-03] MEDS: Magnesium Sulfate/Water 2 GM in Premix Bag 1 BAG IV ONE (11:01)
[2024-01-03] MEDS: Midodrine 5 MG Tab PO SCH (11:02)
[2024-01-03] MEDS: Atropine 0.1 MG/ML 10 ML Syringe IVPUSH STA (12:42)
[2024-01-03] MEDS: Acetaminophen 325 MG Tab PO PRN (14:19)
[2024-01-03] MEDS: Atropine 0.1 MG/ML 10 ML Syringe IVPUSH ONE (20:15)
[2024-01-03] MEDS: Atropine 0.1 MG/ML 10 ML Syringe ONE (20:15)
[2024-01-03] MEDS ORDERED: ZONISAMIDE 100 MG PO SCH (21:00)
[2024-01-03] MEDS: Albuterol 0.083% 2.5 MG/3 ML Neb Soln ONE (22:50)
[2024-01-03] MEDS ORDERED: Albuterol 0.083% 2.5 MG/3 ML Neb Soln NEB PRN (23:00)
[2024-01-04] MEDS: Atropine 0.1 MG/ML 10 ML Syringe IVPUSH PRN (02:24)
[2024-01-04 07:19] LABS: ALBUMIN 2.6 g/dL (3.4-5.0); ANION GAP 13.1 mEq/L (7-13); BILIRUBIN TOTAL 0.2 mg/dL (0.2-1.0); BUN/CREATININE RATIO 9.9 (No establ ref range); CALCIUM 9.3 mg/dL (8.5-10.1); CREATININE 1.11 mg/dL (0.55-1.02); EST CRCL DRUG DOSING (CG) 39.96 mL/min; MAGNESIUM 1.8 mg/dL (1.8-2.4); POTASSIUM,K 4.1 mmol/L (3.5-5.1); PROTEIN TOTAL,TP 5.5 g/dL (6.4-8.2)
[2024-01-04 07:24] LABS: A/G RATIO 0.9
[2024-01-04 09:40] LABS: BAND PERCENT MAN 1 %; EOSINOPHILS PERCENT MAN 3 % (1-3); LYMPHOCYTES PERCENT MAN 61 % (20-50); MONOCYTES PERCENT MAN 3 % (2-8); SEG NEUTROPHILS PERCENT MAN 32 % (42-75)
[2024-01-04] MEDS: Magnesium Hydroxide 400 MG/5 ML Susp 30 ML Cup PO PRN (15:39)
[2024-01-05 12:03] VITALS: BP 109/65; PULSE 54
[2024-01-05 13:24] LABS: A/G RATIO 0.93; ALBUMIN 2.7 g/dL (3.4-5.0); ANION GAP 13.2 mEq/L (7-13); BILIRUBIN TOTAL 0.3 mg/dL (0.2-1.0); CREATININE 1.17 mg/dL (0.55-1.02); EST CRCL DRUG DOSING (CG) 37.41 mL/min; MAGNESIUM 1.8 mg/dL (1.8-2.4); POTASSIUM,K 4.2 mmol/L (3.5-5.1); PROTEIN TOTAL,TP 5.6 g/dL (6.4-8.2)
== END 2024-01-05 15:50 | disposition home or self-care (01) | DRG 389 ==
LOC: DL.ED 09:42 → DL.MS 12:41
PROVIDERS: ADMIT Internal Medicine; ATTEND Internal Medicine
DX: K56.7 Ileus, unspecified (principal); E87.0 Hyperosmolality and hypernatremia; N17.9 Acute kidney failure, unspecified; E87.1 Hypo-osmolality and hyponatremia; N39.0 Urinary tract infection, site not specified; Z79.84 Long term (current) use of oral hypoglycemic drugs; K52.9 Noninfective gastroenteritis and colitis, unspecified; E83.52 Hypercalcemia; E78.00 Pure hypercholesterolemia, unspecified; E87.8 Other disorders of electrolyte and fluid balance, not elsewhere classified; E86.0 Dehydration; E11.9 Type 2 diabetes mellitus without complications; Z90.49 Acquired absence of other specified parts of digestive tract; K21.9 Gastro-esophageal reflux disease without esophagitis; I10 Essential (primary) hypertension; E78.5 Hyperlipidemia, unspecified; K59.09 Other constipation; E11.40 Type 2 diabetes mellitus with diabetic neuropathy, unspecified; G43.909 Migraine, unspecified, not intractable, without status migrainosus; D69.6 Thrombocytopenia, unspecified; E66.9 Obesity, unspecified; R00.1 Bradycardia, unspecified; Z98.49 Cataract extraction status, unspecified eye; Z79.82 Long term (current) use of aspirin; Z68.31 Body mass index [BMI] 31.0-31.9, adult; Z74.01 Bed confinement status; Z87.442 Personal history of urinary calculi; Z79.899 Other long term (current) drug therapy; Z90.710 Acquired absence of both cervix and uterus
CPT/HCPCS: 36415; 71045; 74176; 80053; 81001; 82947; 83605; 83690; 83735; 84484; 85025; 86140; 87086; 93005; 96361; 96374; 96375; 99285; A9270; J0696; J2405; J3490; J7030 ×2; 74018; 74019; 84439; 84443; J0295; J0461; J2765; J3475; J7120; J7613-GY

== ENCOUNTER 2025-02-16 04:52 | Emergency (ER) | payer MEDICARE ==
[2025-02-16 05:37] VITALS: BP 149/93; PULSE 75
== END 2025-02-16 05:44 | disposition home or self-care (01) ==
LOC: DL.ED 04:52
DX: B37.31 Acute candidiasis of vulva and vagina (principal); I10 Essential (primary) hypertension; K21.9 Gastro-esophageal reflux disease without esophagitis; M19.90 Unspecified osteoarthritis, unspecified site; E78.00 Pure hypercholesterolemia, unspecified; E66.9 Obesity, unspecified; E11.9 Type 2 diabetes mellitus without complications; Z79.82 Long term (current) use of aspirin; Z79.890 Hormone replacement therapy; Z79.899 Other long term (current) drug therapy; Z90.49 Acquired absence of other specified parts of digestive tract; Z90.710 Acquired absence of both cervix and uterus; Z68.38 Body mass index [BMI] 38.0-38.9, adult
CPT/HCPCS: 99283; A9270